=== PATIENT | female | born 1945 | race American Indian/Alaskan Native ===

== ENCOUNTER 2022-03-30 19:01 | Inpatient (IN) | payer MEDICARE ==
--- NOTE | 2022-03-30 19:23 | Emergency Department Report ---
HPI - General Chief Complaint: Neuro Symptoms/Deficit Time Seen by Provider: 03/30/22 19:15 - HPI HPI: Time last known well was March 29, 2022 at 9 PM. Apparently since this morning the caretakers thought that there is something wrong with her because her m entation is not the same and she seems confused and having trouble speaking with trouble getting her words out and also some slurring of the words. The patient is usually able to walk and today has not been able to. It is difficult to communicate with the patient but she denies any current complaints and does not know why she is in the emergency department. She does deny nausea vomiting fever chills headache or any other associated symptoms. ED Past Medical Hx - Past Medical History Hx Hypertension: Yes Hx Diabetes: Yes Hx Dementia: Yes (vascular dementia) Additional medical history: Gout, high cholesterol - Surgical History Past Surgical History?: Yes Additional Surgical History: hysterectomy - Family History Family history: no significant - Social History Smoking Status: Never Smoker Substance Use Type: None - Medications Home Medications: Home Medications Medication Instructions Recorded Confirmed Last Taken Type Aspirin [Aspirin BABY CHEW TAB] 81 mg DAILY 11/29/20 11/29/20 11/28/20 History Metformin HCl [metFORMIN ER 500 mg PO BID 11/29/20 11/29/20 11/28/20 History Osmotic] lisinopriL [Zestril TAB] 20 mg PO QDAY 11/29/20 11/29/20 11/28/20 History ALBUTEROL NEB's [Proventil 0.083% 2.5 mg IH Q3HRT PRN nebu 12/02/20 Unknown Rx NEBS] Amlodipine Besylate [Norvasc] 10 mg PO DAILY #30 tab 12/02/20 Unknown Rx AtorvaSTATin 10 mg PO QHS #30 tab 12/02/20 11/29/20 11/28/20 Rx Insulin Glargine [Lantus VIAL] 30 units SUB-Q QHS #15 ml 12/02/20 Unknown Rx Lispro Insulin [HumaLOG] 12 unit SUB-Q AC #15 ml 12/02/20 Unknown Rx Syringe & Needle,Insulin,1 ml 1 each ACHS #100 disp.syrin 12/02/20 Unknown Rx [Ultra Comfort] allopurinoL [Zyloprim] 300 mg PO QDAY #30 tab 12/02/20 11/29/2011/28/21 Rx Insulin Glargine [Lantus VIAL] 30 units SUB-Q QHS #15 ml 12/06/20 Unknown Rx Lispro Insulin [HumaLOG] 12 unit SQ AC #15 ml 12/06/20 Unknown Rx Syringe & Needle,Insulin,1 ml 1 each ACHS #100 disp.syrin 12/06/20 Unknown Rx [Ultra Comfort] ED Review of Systems ROS: Stated complaint: POSS STOKE Other details as noted in HPI Other: All systems reviewed and negative Physical Exam - Physical Exam Vital Signs: Vital Signs 03/30/22 19:03 Temperature 97 F L Pulse Rate 97 H Respiratory 18 Rate Blood Pressure 186/89 [Left] O2 Sat by Pulse 96 Oximetry Physical Exam: Physical Exam: Constitutional: AAOX3. No acute distress. No diaphoresis. HENT: Normocephalic. Pupils equal and reactive. No throat edema or erythema. Neck: No neck rigidity or tenderness. Cardiovascular: Heart sounds: No murmur. Normal rate and regular rhythm. Pulses: Intact distal pulses. Lungs: No wheezing or rales. Chest wall: No tenderness. Abdominal: No distension. No mass/pulsatile mass. No abdominal tenderness, guarding nor rebound. Musculoskeletal: Normal range of motion. No edema, No calf TTP. Skin: Warm and dry. Neurological: Alert and oriented to person, place, and time. NIH stroke scale equals 5 for mild right facial paralysis with a flat nasolabial fold, ataxia in bilateral upper extremities, mild to moderate aphasia, mild dysarthria. Psychiatric: Mood and affect normal. Normal cognition and memory. Normal judgement. ED Course Vital Signs 03/30/22 19:03 Temperature 97 F L Pulse Rate 97 H Respiratory 18 Rate Blood Pressure 186/89 [Left] O2 Sat by Pulse 96 Oximetry - Reevaluation(s) Reevaluation #1: 03/30/22 19:24 At 1920 I spoke to Cierra Kirkland, the telemetry neurologist who will be evaluated the patient once her CAT scan of the brain comes back. Reevaluation #2: 03/30/22 20:25 I spoke to the telemetry neurologist who did not think that this was necessarily a stroke. Anyway she is currently out of the tPA window. She diagnosed her with altered mental status. At this time her chest x-ray is normal her chemistries are all within normal limits I am awaiting on a urinalysis that we can a catheter for and then she will be admitted for altered mental status. 03/30/22 20:26 Reevaluation #3: 03/30/22 20:55 We are awaiting a urine since her white count is elevated. I spoke to Dr. Wang who will be placing admission orders. Likely this could be metabolic but a she could have had a small stroke. ED Medical Decision Making - Lab Data Result diagrams: 03/30/22 19:41 03/30/22 19:41 Critical care attestation.: If time is entered above; I have spent that time in minutes in the direct care of this critically ill patient, excluding procedure time. ED Disposition Clinical Impression: Altered mental status Disposition: 02 [facility] Is pt being admited?: Yes Does the pt Need Aspirin: Yes Condition: Stable
--- NOTE | 2022-03-30 19:55 | Cat Scan Report ---
CT head/brain wo con INDICATION: acute stroke. TECHNIQUE: Routine CT head. All CT scans at this location are performed using CT dose reduction for A FABIEN by means of automated exposure control. COMPARISON: November 29 2020 FINDINGS: Intracranial: Gatica-white matter differentiation is maintained. No intracranial hemorrhage. No extra a xial collection. No hydrocephalus. No herniation. In the left cerebellar lacunar remote basal ganglia , right thalamic, and left cerebellar lacunar infarctions. Significant periventricular and centrum se [place] white matter hypoattenuation most consistent with sequela of chronic microvascular disease. E ncephalomalacia in the right frontal lobe and right insular lobe from prior infarctions. Sinuses: Significant mucosal thickening seen within the left maxillary sinus with suspected underlyin g mucous retention cysts. Orbits: Globes are intact. Calvarium: No acute fracture. IMPRESSION: 1. No acute intracranial abnormality. 2. Severe sequela from chronic microvascular disease and remote multifocal infarctions. Signer Name: Naeem Reyes MD Signed: 03/30/2022 7:50 PM Workstation Name: [id number]
[2022-03-30 20:01] LABS: Basophils # (Auto) 0.1 K/mm3 (0.0-0.1); Basophils % (Auto) 0.7 % (0.0-1.8); Eosinophils # (Auto) 0.3 K/mm3 (0.0-0.4); Eosinophils % (Auto) 2.4 % (0.0-4.3); Hematocrit 43.3 % (30.3-42.9); Hemoglobin 13.7 gm/dl (10.1-14.3); Lymphocytes # (Auto) 2.7 K/mm3 (1.2-5.4); Lymphocytes % (Auto) 21.5 % (13.4-35.0); Mean Corpuscular HGB Conc 32 % (30-34); Mean Corpuscular Volume 83 fl (79-97); Monocytes # (Auto) 0.9 K/mm3 (0.0-0.8); Monocytes % (Auto) 7.1 % (0.0-7.3); Platelet Count 258 K/mm3 (140-440); Red Blood Count 5.24 M/mm3 (3.65-5.03); Red Cell Distribution Width 14.1 % (13.2-15.2)
--- NOTE | 2022-03-30 20:07 | Emergency Department Report ---
Blank Doc - Documentation Documentation: [facility] Consult Note # Demographics Consult Type: Acute Stroke Level 2 (4.5-24 hrs) Patient Location: Emergency Room First Name: Payam Last Name: Funmilayo Date of : 1945 Age: 76 Gender: Female Facility: [facility] Time of Initial Page ( Time): 03/30/2022, 19:12 Time of Return Call ( Time): 03/30/2022, 19:12 # HPI History: 2100 last night was last well. Some slurred speech and difficulty ambulating # Scores Time of exam and NIHSS ( Time): 03/30/2022, 19:40 Level of Consciousness 1a: [0] = Alert; keenly responsive LOC Questions 1b: [2] = Answers neither correctly LOC Commands 1c: [0] = Performs both tasks correctly Best Gaze 2: [0] = Normal Visual 3: [0] = No visual loss Facial Palsy 4: [1] = Minor paralysis Motor Arm Left 5a: [0] = No drift Motor Arm Right 5b: [0] = No drift Motor Leg Left 6a: [0] = No drift Motor Leg Right 6b: [0] = No drift Limb Ataxia 7: [0] = Absent Sensory 8: [0] = Normal Best Language 9: [0] = No aphasia Dysarthria 10: [1] = [id number] dysarthria Extinction and Inattention 11: [0] = No abnormality NIHSS Total: 4 # Assessment Impression: Altered Mental Status # Plan Thrombolytic/Intervention: NOT IV Thrombolysis or IA Intervention candidate Thrombolytic Exclusion: > 4.5 hours Intraarterial Exclusion: clinically not consistent with stroke Other: I have discussed my recommendations with the referring provider Additional Recommendations: Metabolic and infectious evaluation recommended. If no cause found then MRI brain and EEG would be reasonable for next step in evaluation # Log[employer] Telemedicine: Interactive 2 way audio and visual telecommunication technology was utilized during this visit
[2022-03-30 20:10] LABS: INR 0.96 (0.87-1.13)
[2022-03-30 20:11] LABS: Partial Thromboplastin Time 31.5 Sec. (24.2-36.6); Thrombin Time 21.1 Sec. (15.1-19.6)
--- NOTE | 2022-03-30 20:12 | XRay Report ---
CHEST 1 VIEW 03/30/2022 7:51 PM INDICATION / CLINICAL INFORMATION: stroke. COMPARISON: 11/29/2020 FINDINGS: SUPPORT DEVICES: None. HEART / MEDIASTINUM: No significant abnormality. LUNGS / PLEURA: No significant pulmonary or pleural abnormality. No pneumothorax. ADDITIONAL FINDINGS: No significant additional findings. IMPRESSION: 1. No acute findings. Signer Name: Jagdeep Fuentes MD Signed: 03/30/2022 8:08 PM Workstation Name: [id number]
[2022-03-30 20:22] LABS: Albumin 3.9 g/dL (3.9-5); Calcium 9.1 mg/dL (8.4-10.2)
[2022-03-30] MEDS ORDERED: SODIUM CHLORIDE 0.9% 1000 ML 1,000 ML IV ONE ×2 (20:26→22:08)
[2022-03-30] MEDS ORDERED: LIDOCAINE-MPF (1%) 10 MG/1 ML VIAL 5 ML INFILTRATI ONE (20:30)
[2022-03-30] MEDS ORDERED: HYDROmorphone 0.5 MG/0.5 ML INJ IV PRN (20:55)
[2022-03-30] MEDS ORDERED: ONDANSETRON 4 MG/2 ML INJ IV PRN (20:55)
[2022-03-30] MEDS ORDERED: ACETAMINOPHEN 325 MG TAB PO PRN (20:55)
[2022-03-30] MEDS ORDERED: oxyCODONE /ACETAMINOPHEN 5-325MG TAB PO PRN (20:55)
[2022-03-30] MEDS ORDERED: ALBUTEROL 2.5 MG/3 ML NEBU IH PRN (20:55)
--- NOTE | 2022-03-30 20:55 | History and Physical Report ---
History of Present Illness Chief complaint: She is confused and weak today History of present illness: 76 YO Female with CVA with RHP on Antiplatelet therapy, HTN, HLD, Gout, Vascular Dementia, Cerebral Atherosclerosis, DM presents ED for evaluation. Patient has diminished cognition and is unable to provide detailed history. Patient history provided by patient caregivers who are at bedside during exam and interview. As per caregiver the patient was found to have increased weakness and confusion today. Caregivers reported that they suspected the patient may have had another stroke. Patient transported to [facility] via private vehicle for the care and evaluation of the aforementioned symptoms. The patient was seen and evaluated in the emergency department. All lab and imaging studies reviewed. Patient found to have urinary tract infection complicated by systemic inflammatory response syndrome, metabolic encephalopathy, as well as volume depletion. Patient initiated on CVA protocol without evidence of new CVA. Teleneurology consulted. No reports of fever, chills, chest pain, palpitation, productive c ough, skin rash, recent contact, known exposure to COVID-19. No prior admission for review. All medication listed at time of admission as reconciled. Advanced care planning conducted in ED. Patient has diminished cognition but has a positive gag reflex and is able to protect her airway without difficulty at the time my evaluation. Past History Past Medical History: diabetes, hypertension, hyperlipidemia, stroke Past Surgical History: hysterectomy Social history: . denies: smoking, alcohol abuse, prescription drug abuse Family history: diabetes, hypertension Medications and Allergies Allergies Allergy/AdvReac Type Severity Reaction Status Date / Time No Known Allergies Allergy Verified 05/11/15 10:51 Home Medications Medication Instructions Recorded Confirmed Last Taken Type Aspirin [Aspirin BABY CHEW TAB] 81 mg DAILY 11/29/20 11/29/20 11/28/20 History Metformin HCl [metFORMIN ER 500 mg PO BID 11/29/20 11/29/20 11/28/20 History Osmotic] lisinopriL [Zestril TAB] 20 mg PO QDAY 11/29/20 11/29/20 11/28/20 History ALBUTEROL NEB's [Proventil 0.083% 2.5 mg IH Q3HRT PRN nebu 12/02/20 Unknown Rx NEBS] Amlodipine Besylate [Norvasc] 10 mg PO DAILY #30 tab 12/02/20 Unknown Rx AtorvaSTATin 10 mg PO QHS #30 tab 0111/29/20 11/28/20 Rx Insulin Glargine [Lantus VIAL] 30 units SUB-Q QHS #15 ml 12/02/20 Unknown Rx Lispro Insulin [HumaLOG] 12 unit SUB-Q AC #15 ml 12/02/20 Unknown Rx Syringe & Needle,Insulin,1 ml 1 each [facility] #100 disp.syrin 12/02/20 Unknown Rx [Ultra Comfort] allopurinoL [Zyloprim] 300 mg PO QDAY #30 tab 12/02/20 11/29/20 11/28/20 Rx Insulin Glargine [Lantus VIAL] 30 units SUB-Q QHS #15 ml 12/06/20 Unknown Rx Lispro Insulin [HumaLOG] 12 unit SQ AC #15 ml 12/06/20 Unknown Rx Syringe & Needle,Insulin,1 ml 1 each ACHS #100 disp.syrin 12/06/20 Unknown Rx [Ultra Comfort] Active Meds: Active Medications Sodium Chloride (Nacl 0.9% 1000 Ml) 1,000 mls @ 999 mls/hr IV BOLUS ONE Stop: 03/30/22 21:26 Ceftriaxone Sodium (Rocephin/Ns 1 Gm/50 Ml) 1 gm in 50 mls @ 100 mls/hr IV ONCE ONE Stop: 03/30/22 21:29 Review of Systems ROS unobtainable: due to mental status Exam - Constitutional Vitals: Temp Pulse Resp BP Pulse Ox 97 F L 97 H 18 186/89 96 03/30/22 19:03 03/30/22 19:03 03/30/22 19:03 03/30/22 19:03 03/30/22 19:03 General appearance: Present: mild distress - EENT Eyes: Present: PERRL ENT: hearing intact, clear oral mucosa - Neck Neck: Present: supple - Respiratory Respiratory effort: normal Respiratory: bilateral: diminished - Cardiovascular Heart Sounds: Present: S1 & S2. Absent: rub, click - Extremities Extremities: pulses symmetrical, No edema Peripheral Pulses: within normal limits - Abdominal General gastrointestinal: Present: soft, non-tender, non-distended, normal bowel sounds Female genitourinary: Present: normal - Integumentary Integumentary: Present: clear, dry, clammy - Musculoskeletal Musculoskeletal: right sided weakness - Psychiatric Psychiatric: no appropriate mood/affect, no intact judgment & insight, no memory intact - Neurologic Neurologic: CNII-XII intact, focal deficits, no gait normal HEART Score - HEART Score Troponin: Troponin T < 0.010 ng/mL (0.00-0.029) 03/30/22 19:41 Results - Labs CBC & Chem 7: 03/30/22 19:41 03/30/22 19:41 Labs: Abnormal lab results 03/30/22 03/30/22 03/30/22 Range/Units 19:41 19:41 19:41 WBC 12.7 H (4.5-11.0) K/mm3 RBC 5.24 H (3.65-5.03) M/mm3 Hct 43.3 H (30.3-42.9) % MCH 26 L (28-32) pg [place] # (Auto) 0.9 H (0.0-0.8) K/mm3 Seg Neutrophils # 8.7 H (1.8-7.7) K/mm3 Thrombin Time 21.1 H (15.1-19.6) Sec. Chloride 110.2 H (98-107) mmol/L BUN 32 H (7-17) mg/dL Glucose 134 H (65-100) mg/dL Assessment and Plan - Patient Problems (1) Systemic inflammatory response syndrome Status: Acute Plan to address problem: CBC, CMP, urinalysis, chest x-ray, IV fluid resuscitation therapy, IV antibiotic therapy, supportive care. (2) UTI (urinary tract infection) Status: Acute Qualifiers: Encounter type: initial encounter Plan to address problem: CBC, urinalysis, IV antibiotic therapy, repeat CBC in a.m. (3) Metabolic encephalopathy Status: Acute Plan to address problem: CT head, neuro check, seizure precaution, aspiration precaution, fall precautions (4) Vascular dementia Status: Acute Qualifiers: Dementia behavioral disturbance: without behavioral disturbance Qualified Code(s): F01.50 - Vascular dementia without behavioral disturbance Plan to address problem: Verbal prompting, verbal redirection, benzodiazepine therapy as clinically indicated. (5) Cerebral atherosclerosis Status: Acute Plan to address problem: Risk factor reduction, antiplatelet therapy, supportive care. (6) Volume depletion Status: Acute Plan to address problem: IV fluid resuscitation therapy, monitor urine output every shift, monitor fluid balance. (7) DVT prophylaxis Status: Acute Plan to address problem: SCD to bilateral lower extremities while in bed (8) Advance care planning Status: Acute Plan to address problem: Disease education done, care plan discussed, diagnoses discussed, prognosis discussed, patient is full code. Patient caregivers acknowledged understanding and agreement with care plan, +30 minutes. (9) Preventative health care Status: Acute Plan to address problem: Patient caregiver was counseled regarding risk factor reduction, home safety, outpatient follow-up with primary care physician for all age and risk factor appropriate screening test.
[2022-03-30] MEDS ORDERED: ASPIRIN 81 MG TAB CHEW PO ONE (20:56)
[2022-03-30] MEDS ORDERED: DEXTROSE 50% IN WATER (25GM) 50 ML SYRINGE IV PRN (20:58)
[2022-03-30] MEDS ORDERED: cefTRIAXone/NS 1 GM/50 ML 1 GM/50 ML BAG IV ONE (21:00)
[2022-03-31] MEDS: INSULIN LISPRO 100 UNIT/ML SUB-Q SCH ×4 (02:17→17:14)
[2022-03-31 05:53] LABS: Basophils % (Auto) 0.5 % (0.0-1.8); Eosinophils # (Auto) 0.3 K/mm3 (0.0-0.4); Eosinophils % (Auto) 2.9 % (0.0-4.3); Hemoglobin 13.1 gm/dl (10.1-14.3); Lymphocytes % (Auto) 18.9 % (13.4-35.0); Mean Corpuscular HGB Conc 32 % (30-34); Mean Corpuscular Volume 83 fl (79-97); Monocytes # (Auto) 0.8 K/mm3 (0.0-0.8); Monocytes % (Auto) 7.2 % (0.0-7.3); Platelet Count 247 K/mm3 (140-440); Red Blood Count 4.95 M/mm3 (3.65-5.03); Red Cell Distribution Width 14.2 % (13.2-15.2)
[2022-03-31 06:17] LABS: BUN/Creatinine Ratio 29; Blood Urea Nitrogen 29 mg/dL (7-17); Calcium 8.5 mg/dL (8.4-10.2); Hemolysis Index 61
[2022-03-31] MEDS: SODIUM CHLORIDE 0.9% 1000 ML 1,000 ML IV SCH ×2 (07:31→23:24)
[2022-03-31 09:34] LABS: Bilirubin,Urine NEG (Negative); Blood,Urine NEG (Negative); Color,Urine Straw (Yellow); Protein,Urine <15 mg/dL mg/dL (Negative); Urobilinogen,Urine < 2.0 mg/dL (<2.0)
[2022-03-31 09:36] LABS: RBC,Urine < 1.0 /HPF (0.0-6.0); WBC,Urine < 1.0 /HPF (0.0-6.0)
[2022-03-31] MEDS: LISINOPRIL 20 MG TAB PO SCH (09:55)
[2022-03-31] MEDS: allopurinoL 300 MG TAB PO SCH (09:55)
[2022-03-31] MEDS: amLODIPine 10 MG TAB PO SCH (09:55)
--- NOTE | 2022-03-31 11:00 | Progress Note ---
Assessment and Plan Assessment and plan: 76 YO Female with CVA with RHP on Antiplatelet therapy, HTN, HLD, Gout, Vascular Dementia, Cerebral Atherosclerosis, DM presents ED for evaluation of diminished cognition and was unable to provide detailed history. Patient's history provided by patient caregivers who are at bedside during exam and interview. As per caregiver the patient was found to have increased weakness and confusion today. Caregivers reported that they suspected the patient may have had another stroke. Patient transported to [facility] via private vehicle for the care and evaluation of the aforementioned symptoms. The patient was seen and evaluated in the emergency department. The patient was admitted with diagnosis below: SIRS. Patient meets criteria given the tachycardia, leukocytosis and altered mentation. No signs of infection Metabolic encephalopathy Vascular dementia Cerebral atherosclerosis 03/31/2022. Urinalysis does not reveal any signs of infection. We will follow- up blood cultures for further evaluation. Continue empiric antibiotics for now. We will proceed with further follow-up and rule out CVA. Check MRI of brain. Patient appears to be back to her baseline mental status. ? TIA. History Interval history: No new issues overnight. Hospitalist Physical - Constitutional Vitals: Temp Pulse Resp BP Pulse Ox 97 F L 79 20 164/63 98 03/30/22 19:03 03/31/22 01:15 03/31/22 01:15 03/31/22 01:15 03/31/22 08:48 General appearance: Present: no acute distress - EENT Eyes: Present: PERRL, EOM intact ENT: hearing intact, clear oral mucosa, dentition normal - Neck Neck: Present: supple, normal ROM - Respiratory Respiratory effort: normal Respiratory: bilateral: CTA - Cardiovascular Rhythm: regular Heart Sounds: Present: S1 & S2. Absent: gallop, rub - Extremities Extremities: no ischemia, No edema, Full ROM - Abdominal General gastrointestinal: soft, non-tender, non-distended, normal bowel sounds - Integumentary Integumentary: Present: clear, warm, dry - Neurologic Neurologic: CNII-XII intact, moves all extremities HEART Score - HEART Score Troponin: Troponin T < 0.010 ng/mL (0.00-0.029) 03/30/22 19:41 Results - Labs CBC & Chem 7: 03/31/22 05:23 03/31/22 05:23 Labs: Laboratory Last Values WBC 10.4 K/mm3 (4.5-11.0) 03/31/22 05:23 RBC 4.95 M/mm3 (3.65-5.03) 03/31/22 05:23 Hgb 13.1 gm/dl (10.1-14.3) 03/31/22 05:23 Hct 41.0 % (30.3-42.9) 03/31/22 05:23 MCV 83 fl (79-97) 03/31/22 05:23 MCH 27 pg (28-32) L 03/31/22 05:23 MCHC 32 % (30-34) 03/31/22 05:23 RDW 14.2 % (13.2-15.2) 03/31/22 05:23 Plt Count 247 K/mm3 (140-440) 03/31/22 05:23 Lymph % (Auto) 18.9 % (13.4-35.0) 03/31/22 05:23 [place] % (Auto) 7.2 % (0.0-7.3) 03/31/22 05:23 Eos % (Auto) 2.9 % (0.0-4.3) 03/31/22 05:23 Baso % (Auto) 0.5 % (0.0-1.8) 03/31/22 05:23 Lymph # (Auto) 2.0 K/mm3 (1.2-5.4) 03/31/22 05:23 [place] # (Auto) 0.8 K/mm3 (0.0-0.8) 03/31/22 05:23 Eos # (Auto) 0.3 K/mm3 (0.0-0.4) 03/31/22 05:23 Baso # (Auto) 0.0 K/mm3 (0.0-0.1) 03/31/22 05:23 Seg Neutrophils % 70.5 % (40.0-70.0) H 03/31/22 05:23 Seg Neutrophils # 7.3 K/mm3 (1.8-7.7) 03/31/22 05:23 PT 13.8 Sec. (12.2-14.9) 03/30/22 19:41 INR 0.96 (0.87-1.13) 03/30/22 19:41 APTT 31.5 Sec. (24.2-36.6) 03/30/22 19:41 Thrombin Time 21.1 Sec. (15.1-19.6) H 03/30/22 19:41 Sodium 144 mmol/L (137-145) 03/31/22 05:23 Potassium 4.7 mmol/L (3.6-5.0) 03/31/22 05:23 Chloride 112.8 mmol/L (98-107) H 03/31/22 05:23 Carbon Dioxide 22 mmol/L (22-30) 03/31/22 05:23 Anion Gap 14 mmol/L 03/31/22 05:23 BUN 29 mg/dL (7-17) H 03/31/22 05:23 Creatinine 1.0 mg/dL (0.6-1.2) 03/31/22 05:23 Estimated GFR > 60 ml/min 03/31/22 05:23 BUN/Creatinine Ratio 29 % 03/31/22 05:23 Glucose 135 mg/dL (65-100) H 03/31/22 05:23 POC Glucose 128 mg/dL (70-105) H 03/31/22 05:50 Calcium 8.5 mg/dL (8.4-10.2) 03/31/22 05:23 Total Bilirubin 0.30 mg/dL (0.1-1.2) 03/30/22 19:41 AST 15 units/L (5-40) 03/30/22 19:41 ALT 15 units/L (7-56) 03/30/22 19:41 Alkaline Phosphatase 94 units/L (35-129) 03/30/22 19:41 Troponin T < 0.010 ng/mL (0.00-0.029) 03/30/22 19:41 Total Protein 7.0 g/dL (6.3-8.2) 03/30/22 19:41 Albumin 3.9 g/dL (3.9-5) 03/30/22 19:41 Albumin/Globulin Ratio 1.3 % 03/30/22 19:41 Urine Color Straw (Yellow) 03/31/22 09:00 Urine Turbidity Clear (Clear) 03/31/22 09:00 Urine pH 5.0 (5.0-7.0) 03/31/22 09:00 Ur Specific [place] 1.012 (1.003-1.030) 03/31/22 09:00 Urine Protein <15 mg/dl mg/dL (Negative) 03/31/22 09:00 Urine Glucose (UA) >=500 mg/dL (Negative) 03/31/22 09:00 Urine Ketones Neg mg/dL (Negative) 03/31/22 09:00 Urine Blood Neg (Negative) 03/31/22 09:00 Urine Nitrite Neg (Negative) 03/31/22 09:00 Urine Bilirubin Neg (Negative) 03/31/22 09:00 Urine Urobilinogen < 2.0 mg/dL (<2.0) 03/31/22 09:00 Ur Leukocyte Esterase Neg (Negative) 03/31/22 09:00 Urine WBC (Auto) < 1.0 /HPF (0.0-6.0) 03/31/22 09:00 Urine RBC (Auto) < 1.0 /HPF (0.0-6.0) 03/31/22 09:00 U Epithel Cells (Auto) 3.0 /HPF (0-13.0) 03/31/22 09:00 Microbiology: Microbiology 03/30/22 20:47 Peripheral/Venous Blood Culture - Preliminary Culture in Progress 03/30/22 20:47 Peripheral/Venous Blood Culture - Preliminary Culture in Progress Asencio/IV: Voiding Method External Female Catheter Active Medications - Current Medications Current Medications: Generic Name Dose Route Start Last Admin Trade Name Freq PRN Reason Stop Dose Admin Acetaminophen 650 mg 03/30/22 20:55 03/30/22 21:37 Acetaminophen 325 Mg Tab PO 650 mg Q4H PRN Administration Pain MILD(1-3)/Fever >100.5/GARCIA Albuterol 2.5 mg 03/30/22 20:55 Albuterol 2.5 Mg/3 Ml Nebu IH Q4HRT PRN Shortness Of Breath Allopurinol 300 mg 03/31/22 10:00 03/31/22 09:55 Allopurinol 300 Mg Tab PO 300 mg QDAY ANGELA Administration Amlodipine Besylate 10 mg 03/31/22 10:00 03/31/22 09:55 Amlodipine 10 Mg Tab PO 10 mg DAILY ANGELA Administration Atorvastatin Calcium 10 mg 03/30/22 22:00 03/31/22 02:49 Atorvastatin 10 Mg Tab PO Not Given QHS ANGELA Dextrose 50 ml 03/30/22 20:58 Dextrose 50% In Water (25gm) 50 Ml Syringe IV Q30MIN PRN Hypoglycemia Protocol Hydromorphone HCl 0.5 mg 03/30/22 20:55 Hydromorphone 0.5 Mg/0.5 Ml Inj IV Q23H PRN Pain , Severe (7-10) Sodium Chloride 1,000 mls @ 75 mls/hr 03/30/22 21:00 03/31/22 07:31 Nacl 0.9% 1000 Ml IV 75 mls/hr DIRECT ANGELA Administration Levofloxacin/Dextrose 500 mg in 100 mls @ 100 mls/hr 03/30/22 21:00 03/31/22 02:50 Levaquin 500mg/100ml IV 100 mls/hr Q24H ANGELA Infusion Protocol Insulin Human Lispro 0 unit 03/31/22 00:00 03/31/22 08:07 Insulin Lispro 100 Unit/Ml SUB-Q Not Given Q6HR ANGELA Protocol Lisinopril 20 mg 03/31/22 10:00 03/31/22 09:55 Lisinopril 20 Mg Tab PO 20 mg QDAY ANGELA Administration Ondansetron HCl 4 mg 03/30/22 20:55 03/30/22 21:35 Ondansetron 4 Mg/2 Ml Inj IV 4 mg Q8H PRN Administration Nausea And Vomiting Oxycodone/Acetaminophen 1 tab 03/30/22 20:55 Oxycodone /Acetaminophen 5-325mg Tab PO Q16H PRN Pain, Moderate (4-6) Sodium Chloride 10 ml 03/30/22 22:00 03/31/22 09:55 Sodium Chloride 0.9% 10 Ml Flush Syringe IV 10 ml BID ANGELA Administration Sodium Chloride 10 ml 03/30/22 20:55 Sodium Chloride 0.9% 10 Ml Flush Syringe IV PRN PRN LINE FLUSH
--- NOTE | 2022-03-31 15:02 | Magnetic Resonance Report ---
MR brain wo con INDICATION / CLINICAL INFORMATION: 76 years Female; AMS, r/o CVA. TECHNIQUE: Multiplanar, multisequence MR images of the brain were obtained. COMPARISON: None available. FINDINGS: BRAIN / INTRACRANIAL CONTENTS: There is extensive cerebral and pontine white matter disease most cons istent with microvascular angiopathy. Additionally, there are areas of septal malacia involving right frontal, parietal and occipital lobes most consistent with old infarcts. More focal findings are see n along the posterior left occipital lobes as well as within the basal ganglia and thalami. If there is increase diffusion signal along the more anterior left thalamus measuring 1.4 cm greatest transverse dimension compatible with acute/subacute infarct. The diffusion imaging is otherwise unre markable. Old infarct is seen within the left phani as well as along the posterior cerebellar hemisphe res bilaterally. There is moderate cerebral atrophy with associated prominence of the ventricular system. No extra-axi al fluid collections or significant mass effect is identified. There also appear to be asymmetric chr onic ischemic changes along the inferior right temporal lobe with relative atrophy of the right [place]. CRANIOCERVICAL JUNCTION: No significant abnormality. VASCULAR FLOW-VOIDS: The intracranial ICAs and vertebrobasilar system grossly demonstrate appropriate signal voids. ORBITS: No significant abnormality of visualized orbits. SINUSES / MASTOIDS: There is heterogeneous signal involving medial left maxillary sinus extending to the adjacent left nasal cavity which may be on inflammatory basis though correlation would be needed given the heterogeneous signal. There is more homogeneous increased T2-weighted signal within the rem aining left maxillary sinus most consistent with associated inflammatory process and mucosal thickeni ng. Nodular heterogeneous signal extends within the posterior left nasal cavity. ADDITIONAL FINDINGS: None. IMPRESSION: 1. There is a 1.4 cm acute infarct along the anterior left thalamus as detailed above. 2. There is otherwise extensive chronic microvascular angiopathy and multiple old infarcts, also desc ribed above. 3. There is heterogeneous opacification of the left maxillary sinus with component extending within t he adjacent left nasal cavity as described Signer Name: Tito Spence MD Signed: 03/31/2022 2:58 PM Workstation Name: [id number]
[2022-04-01] MEDS: INSULIN LISPRO 100 UNIT/ML SUB-Q SCH ×4 (00:23→18:00)
[2022-04-01] MEDS: ASPIRIN EC 325 MG TAB PO SCH (10:03)
[2022-04-01] MEDS: amLODIPine 10 MG TAB PO SCH (10:03)
[2022-04-01] MEDS: LISINOPRIL 20 MG TAB PO SCH (10:04)
[2022-04-01] MEDS: allopurinoL 300 MG TAB PO SCH (10:08)
--- NOTE | 2022-04-01 10:26 | Consultation ---
History of Present Illness Consult date: 04/01/22 Reason for Consult: Increase weakness and confusion,Hx of CVA,dementia,UTI History of present illness: She is confused and weak today History of present illness: 76 YO Female with CVA with RHP on Antiplatelet therapy, HTN, HLD, Gout, Vascular Dementia, Cerebral Atherosclerosis, DM presents ED for evaluation. Patient has diminished cognition and is unable to provide detailed history. Patient history provided by patient caregivers who are at bedside during exam and interview. As per caregiver the patient was found to have increased weakness and confusion today. Caregivers reported that they suspected the patient may have had another stroke. Patient transported to [facility] via private vehicle for the care and ev aluation of the aforementioned symptoms. The patient was seen and evaluated in the emergency department. All lab and imaging studies reviewed. Patient found to have urinary tract infection complicated by systemic inflammatory response syndrome, metabolic encephalopathy, as well as volume depletion. Patient initiated on CVA protocol without evidence of new CVA. Teleneurology consulted. No reports of fever, chills, chest pain, palpitation, productive cough, skin rash, recent contact, known exposure to COVID-19. No prior admission for review. All medication listed at time of admission as reconciled. Advanced care planning conducted in ED. Patient has diminished cognition but has a pos itive gag reflex and is able to protect her airway without difficulty at the time my evaluation. Today she is alert interactive,follow simple command she is hard hearing , she is with no complaint ,disoriented to date and place, thinks she is [address] brain is with significant white matter changes and subcortical and right parieto-occipital infarct . Past History Past Medical History: diabetes, hypertension, hyperlipidemia, stroke Past Surgical History: hysterectomy Social history: . denies: smoking, alcohol abuse, prescription drug abuse Family history: diabetes, hypertension Medications and Allergies Allergies Allergy/AdvReac Type Severity Reaction Status Date / Time No Known Allergies Allergy Verified 05/11/15 10:51 Home Medications Medication Instructions Recorded Confirmed Last Taken Type Aspirin [Aspirin BABY CHEW TAB] 81 mg DAILY 11/29/20 11/29/20 11/28/20 History Metformin HCl [metFORMIN ER 500 mg PO BID 11/29/20 11/29/20 11/28/20 History Osmotic] lisinopriL [Zestril TAB] 20 mg PO QDAY 11/29/20 11/29/2011/28/21 History ALBUTEROL NEB's [Proventil 0.083% 2.5 mg IH Q3HRT PRN nebu 12/02/20 Unknown Rx NEBS] Amlodipine Besylate [Norvasc] 10 mg PO DAILY #30 tab 12/02/20 Unknown Rx AtorvaSTATin 10 mg PO QHS #30 tab 12/02/20 11/29/20 11/28/20 Rx Insulin Glargine [Lantus VIAL] 30 units SUB-Q QHS #15 ml 12/02/20 Unknown Rx Lispro Insulin [HumaLOG] 12 unit SUB-Q AC #15 ml 12/02/20 Unknown Rx Syringe & Needle,Insulin,1 ml 1 each [facility] #100 disp.syrin 12/02/20 Unknown Rx [Ultra Comfort] allopurinoL [Zyloprim] 300 mg PO QDAY #30 tab 12/02/20 11/29/20 11/28/20 Rx Insulin Glargine [Lantus VIAL] 30 units SUB-Q QHS #15 ml 12/06/20 Unknown Rx Lispro Insulin [HumaLOG] 12 unit SQ AC #15 ml 12/06/20 Unknown Rx Syringe & Needle,Insulin,1 ml 1 each [facility] #100 disp.syrin 12/06/20 Unknown Rx [Ultra Comfort] Active Meds: Active Medications Sodium Chloride (Nacl 0.9% 1000 Ml) 1,000 mls @ 999 mls/hr IV BOLUS ONE Stop: 03/30/22 21:26 Ceftriaxone Sodium (Rocephin/Ns 1 Gm/50 Ml) 1 gm in 50 mls @ 100 mls/hr IV ONCE ONE Stop: 03/30/22 21:29 Review of Systems ROS unobtainable: due to mental status Past History Past Medical History: diabetes, hypertension, hyperlipidemia, stroke Past Surgical History: hysterectomy Social history: . denies: smoking, alcohol abuse, prescription drug abuse Family history: diabetes, hypertension Medications and Allergies Allergies Allergy/AdvReac Type Severity Reaction Status Date / Time No Known Allergies Allergy Verified 05/11/15 10:51 Home Medications Medication Instructions Recorded Confirmed Last Taken Type Aspirin [Aspirin BABY CHEW TAB] 81 mg DAILY 11/29/20 11/29/20 11/28/20 History Metformin HCl [metFORMIN ER 500 mg PO BID 01/11/29/20 11/28/20 History Osmotic] lisinopriL [Zestril TAB] 20 mg PO QDAY 11/29/20 11/29/20 11/28/20 History ALBUTEROL NEB's [Proventil 0.083% 2.5 mg IH Q3HRT PRN nebu 12/02/20 Unknown Rx NEBS] Amlodipine Besylate [Norvasc] 10 mg PO DAILY #30 tab 12/02/20 Unknown Rx AtorvaSTATin 10 mg PO QHS #30 tab 12/02/20 11/29/20 11/28/20 Rx Insulin Glargine [Lantus VIAL] 30 units SUB-Q QHS #15 ml 12/02/20 Unknown Rx Lispro Insulin [HumaLOG] 12 unit SUB-Q AC #15 ml 12/02/20 Unknown Rx Syringe & Needle,Insulin,1 ml 1 each [facility] #100 disp.syrin 12/02/20 Unknown Rx [Ultra Comfort] allopurinoL [Zyloprim] 300 mg PO QDAY #30 tab 12/02/20 11/29/20 11/28/20 Rx Insulin Glargine [Lantus VIAL] 30 units SUB-Q QHS #15 ml 12/06/20 Unknown Rx Lispro Insulin [HumaLOG] 12 unit SQ AC #15 ml 12/06/20 Unknown Rx Syringe & Needle,Insulin,1 ml 1 each [facility] #100 disp.syrin 12/06/20 Unknown Rx [Ultra Comfort] Active Meds: Active Medications Acetaminophen (Acetaminophen 325 Mg Tab) 650 mg PO Q4H PRN PRN Reason: Pain MILD(1-3)/Fever >100.5/GARCIA Last Admin: 03/30/22 21:37 Dose: 650 mg Albuterol (Albuterol 2.5 Mg/3 Ml Nebu) 2.5 mg IH Q4HRT PRN PRN Reason: Shortness Of Breath Allopurinol (Allopurinol 300 Mg Tab) 300 mg PO QDAY [facility] Last Admin: 04/01/22 10:08 Dose: 300 mg Amlodipine Besylate (Amlodipine 10 Mg Tab) 10 mg PO DAILY [facility] Last Admin: 04/01/22 10:03 Dose: 10 mg Aspirin (Aspirin Ec 325 Mg Tab) 325 mg PO QDAY [facility] Last Admin: 04/01/22 10:03 Dose: 325 mg Atorvastatin Calcium (Atorvastatin 40 Mg Tab) 40 mg PO QHS [facility] Dextrose (Dextrose 50% In Water (25gm) 50 Ml Syringe) 50 ml IV Q30MIN PRN; Protocol PRN Reason: Hypoglycemia Hydromorphone HCl (Hydromorphone 0.5 Mg/0.5 Ml Inj) 0.5 mg IV Q23H PRN PRN Reason: Pain , Severe (7-10) Sodium Chloride (Nacl 0.9% 1000 Ml) 1,000 mls @ 75 mls/hr IV DIRECT [facility] Last Admin: 03/31/22 23:24 Dose: 75 mls/hr Levofloxacin/Dextrose (Levaquin 500mg/100ml) 500 mg in 100 mls @ 100 mls/hr IV Q24H [facility]; Protocol Last Admin: 03/31/22 21:52 Dose: 100 mls/hr Insulin Human Lispro (Insulin Lispro 100 Unit/Ml) 0 unit SUB-Q Q6HR [facility]; Protocol Last Admin: 04/01/22 06:03 Dose: 2 unit Lisinopril (Lisinopril 20 Mg Tab) 20 mg PO QDAY [facility] Last Admin: 04/01/22 10:04 Dose: 20 mg Ondansetron HCl (Ondansetron 4 Mg/2 Ml Inj) 4 mg IV Q8H PRN PRN Reason: Nausea And Vomiting Last Admin: 03/30/22 21:35 Dose: 4 mg Oxycodone/Acetaminophen (Oxycodone /Acetaminophen 5-325mg Tab) 1 tab PO Q16H [place] PRN Reason: Pain, Moderate (4-6) Sodium Chloride (Sodium Chloride 0.9% 10 Ml Flush Syringe) 10 ml IV BID [facility] Last Admin: 04/01/22 10:03 Dose: 10 ml Sodium Chloride (Sodium Chloride 0.9% 10 Ml Flush Syringe) 10 ml IV PRN PRN PRN Reason: LINE FLUSH Physical Examination - Vital Signs Vital Signs: Vital Signs Temp Pulse Resp BP Pulse Ox 97 F L 97 H 18 186/89 96 03/30/22 19:03 03/30/22 19:03 03/30/22 19:03 03/30/22 19:03 03/30/22 19:03 - Constitutional General appearance: comfortable - EENT EENT: Present: PERRL, mucous membranes moist - Respiratory Respiratory: Present: lungs clear, rhonchi - Cardiovascular Cardiovascular: Present: regular rate, normal S1, normal S2 Extremities: Present: no peripheral edema bilatateraly, no clubbing, cyanosis - Gastrointestinal Gastrointestinal: Present: normoactive bowel sounds - Integumentary Integumentary: Present: normal - Neurologic Cranial nerve examination: PERRL, EOMI, intact Speech examination: intact Sensorimotor examination: intact Detailed motor examination: other (slight right pronator drift, planter is down going, gait is not done.) - Level of Consciousness 1a. Level of Consciousness: alert/keenly responsive - LOC Questions 1b. LOC Questions: answers no questions correctly - LOC Command 1c. LOC Commands: performs tasks correctly - Best Gaze 2. Best Gaze: normal - Visual 3. Visual: no visual loss - Facial Palsy 4. Facial Palsy: normal symmetrical movement - Motor Arm 5a. Motor Arm Left: no drift 5b. Motor Arm Right: drift - Motor Leg 6a. Motor Leg Left: no drift 6b. Motor Leg Right: no drift - Limb Ataxia 7. Limb Ataxia: absent - Sensory 8. Sensory: normal - Best Language 9. Best Language: no aphasia - Dysarthria 10. Dysarthria: normal - Extinction and Inattention 11. Extinction/Inattention: no abnormality - Scoring Total Score: 3 Stroke Severity: Minor Stroke Results - Laboratory Findings CBC and BMP: 03/31/22 05:23 03/31/22 05:23 Abnormal Lab Findings: Abnormal Labs 03/30/22 03/30/22 03/30/22 19:41 19:41 19:41 WBC 12.7 H RBC 5.24 H Hct 43.3 H MCH 26 L [place] # (Auto) 0.9 H Seg Neutrophils % Seg Neutrophils # 8.7 H Thrombin Time 21.1 H Chloride 110.2 H BUN 32 H Glucose 134 H POC Glucose 03/31/22 03/31/22 03/31/22 01:49 05:23 05:23 WBC RBC Hct MCH 27 L [place] # (Auto) Seg Neutrophils % 70.5 H Seg Neutrophils # Thrombin Time Chloride 112.8 H BUN 29 H Glucose 135 H POC Glucose 113 H 03/31/22 03/31/22 03/31/22 05:50 12:13 23:45 WBC RBC Hct MCH [place] # (Auto) Seg Neutrophils % Seg Neutrophils # Thrombin Time Chloride BUN Glucose POC Glucose 128 H 159 H 154 H 04/01/22 05:54 WBC RBC Hct MCH [place] # (Auto) Seg Neutrophils % Seg Neutrophils # Thrombin Time Chloride BUN Glucose POC Glucose 167 H Assessment and Plan Assessment and Plan 76 YO Female with CVA with RHP on Antiplatelet therapy, HTN, HLD, Gout, Vascular Dementia, Cerebral Atherosclerosis, DM presents ED for evaluation of diminished cognition and was unable to provide detailed history. Patient's history provided by patient caregivers who are at bedside during exam and interview. As per caregiver the patient was found to have increased weakness and confusion today. Caregivers reported that they suspected the patient may have had another stroke. Patient transported to [facility] via private vehicle for the care and evaluation of the aforementioned symptoms. The patient was seen and evaluated in the emergency department. The patient was admitted with diagnosis below: - Patient Problems # Encephalopathy -R/O infectious,Toxic metabolic etiology -Ct head is with multiinfarct -MRI is noted -Check B12 and TSH -US # Vascular dementia -She is hard hearing -Verbal prompting, verbal redirection, benzodiazepine therapy as clinically indicated. # Right side weakness -CT showed multiinfarct _MRI brain left thalamic infarct -Echo is with EF#55-60%LVH -LDL is pending -A1C is pending -Suggest CTA brain and neck -Cardiac monitoring -PT/ST evaluate -ASA 325 mg daily -Lipitor 40 mg # Systemic inflammatory response syndrome -CBC, CMP, urinalysis, chest x-ray, IV fluid resuscitation therapy, IV antib iotic therapy, supportive care. # UTI (urinary tract infection) -CBC, urinalysis, IV antibiotic therapy, repeat CBC in a.m. # Volume depletion -IV fluid resuscitation therapy, monitor urine output every shift, monitor fluid balance. # DVT prophylaxis -SCD to bilateral lower extremities while in bed PLAN 1- Maintain ASA and Lipitor 2- CTA brain and neck 3- LDL and A1C 4- PT/St evaluate 5- TSH,B12 will follow
--- NOTE | 2022-04-01 10:55 | Progress Note ---
Assessment and Plan Assessment and plan: 76 YO Female with CVA with RHP on Antiplatelet therapy, HTN, HLD, Gout, Vascular Dementia, Cerebral Atherosclerosis, DM presents ED for evaluation of diminished cognition and was unable to provide detailed history. Patient's history provided by patient caregivers who are at bedside during exam and interview. As per caregiver the patient was found to have increased weakness and confusion today. Caregivers reported that they suspected the patient may have had another stroke. Patient transported to [facility] via private vehicle for the care and evaluation of the aforementioned symptoms. The patient was seen and evaluated in the emergency department. The patient was admitted with diagnosis below: Acute left thalamic CVA. SIRS. Patient meets criteria given the tachycardia, leukocytosis and altered mentation. No signs of infection Diabetes mellitus type 2 Hypertension. Metabolic encephalopathy Vascular dementia Cerebral atherosclerosis 03/31/2022. Urinalysis does not reveal any signs of infection. We will follow- up blood cultures for further evaluation. Continue empiric antibiotics for now. We will proceed with further follow-up and rule out CVA. Check MRI of brain. Patient appears to be back to her baseline mental status. ? TIA. 04/01/2022. MRI reveals acute anterior left thalamic CVA measuring 1.4 cm. We will initiate aspirin and Lipitor for secondary prevention. Await echocardiogram results to rule out thromboembolic source. Neurology has been consulted. Await physical therapy evaluation. Patient's BG has been stable not requiring home Lantus insulin. We will continue sliding scale regular insulin and monitor closely History Interval history: No new issues overnight. Hospitalist Physical - Constitutional Vitals: Temp Pulse Resp BP Pulse Ox 98.7 F 77 16 156/66 97 03/31/22 20:44 03/31/22 20:44 03/31/22 20:44 03/31/22 20:44 04/01/22 09:12 General appearance: Present: no acute distress - EENT Eyes: Present: PERRL, EOM intact ENT: hearing intact, clear oral mucosa, dentition normal - Neck Neck: Present: supple, normal ROM - Respiratory Respiratory effort: normal Respiratory: bilateral: CTA - Cardiovascular Rhythm: regular Heart Sounds: Present: S1 & S2. Absent: gallop, rub - Extremities Extremities: no ischemia, No edema, Full ROM - Abdominal General gastrointestinal: soft, non-tender, non-distended, normal bowel sounds - Integumentary Integumentary: Present: clear, warm, dry - Neurologic Neurologic: CNII-XII intact, moves all extremities HEART Score - HEART Score Troponin: Troponin T < 0.010 ng/mL (0.00-0.029) 03/30/22 19:41 Results - Labs CBC & Chem 7: 03/31/22 05:23 03/31/22 05:23 Labs: Laboratory Last Values WBC 10.4 K/mm3 (4.5-11.0) 03/31/22 05:23 RBC 4.95 M/mm3 (3.65-5.03) 03/31/22 05:23 Hgb 13.1 gm/dl (10.1-14.3) 03/31/22 05:23 Hct 41.0 % (30.3-42.9) 03/31/22 05:23 MCV 83 fl (79-97) 03/31/22 05:23 MCH 27 pg (28-32) L 03/31/22 05:23 MCHC 32 % (30-34) 03/31/22 05:23 RDW 14.2 % (13.2-15.2) 03/31/22 05:23 Plt Count 247 K/mm3 (140-440) 03/31/22 05:23 Lymph % (Auto) 18.9 % (13.4-35.0) 03/31/22 05:23 [place] % (Auto) 7.2 % (0.0-7.3) 03/31/22 05:23 Eos % (Auto) 2.9 % (0.0-4.3) 03/31/22 05:23 Baso % (Auto) 0.5 % (0.0-1.8) 03/31/22 05:23 Lymph # (Auto) 2.0 K/mm3 (1.2-5.4) 03/31/22 05:23 [place] # (Auto) 0.8 K/mm3 (0.0-0.8) 03/31/22 05:23 Eos # (Auto) 0.3 K/mm3 (0.0-0.4) 03/31/22 05:23 Baso # (Auto) 0.0 K/mm3 (0.0-0.1) 03/31/22 05:23 Seg Neutrophils % 70.5 % (40.0-70.0) H 03/31/22 05:23 Seg Neutrophils # 7.3 K/mm3 (1.8-7.7) 03/31/22 05:23 PT 13.8 Sec. (12.2-14.9) 03/30/22 19:41 INR 0.96 (0.87-1.13) 03/30/22 19:41 APTT 31.5 Sec. (24.2-36.6) 03/30/22 19:41 Thrombin Time 21.1 Sec. (15.1-19.6) H 03/30/22 19:41 Sodium 144 mmol/L (137-145) 03/31/22 05:23 Potassium 4.7 mmol/L (3.6-5.0) 03/31/22 05:23 Chloride 112.8 mmol/L (98-107) H 03/31/22 05:23 Carbon Dioxide 22 mmol/L (22-30) 03/31/22 05:23 Anion Gap 14 mmol/L 03/31/22 05:23 BUN 29 mg/dL (7-17) H 03/31/22 05:23 Creatinine 1.0 mg/dL (0.6-1.2) 03/31/22 05:23 Estimated GFR > 60 ml/min 03/31/22 05:23 BUN/Creatinine Ratio 29 % 03/31/22 05:23 Glucose 135 mg/dL (65-100) H 03/31/22 05:23 POC Glucose 167 mg/dL (70-105) H 04/01/22 05:54 Calcium 8.5 mg/dL (8.4-10.2) 03/31/22 05:23 Total Bilirubin 0.30 mg/dL (0.1-1.2) 03/30/22 19:41 AST 15 units/L (5-40) 03/30/22 19:41 ALT 15 units/L (7-56) 03/30/22 19:41 Alkaline Phosphatase 94 units/L (35-129) 03/30/22 19:41 Troponin T < 0.010 ng/mL (0.00-0.029) 03/30/22 19:41 Total Protein 7.0 g/dL (6.3-8.2) 03/30/22 19:41 Albumin 3.9 g/dL (3.9-5) 03/30/22 19:41 Albumin/Globulin Ratio 1.3 % 03/30/22 19:41 Urine Color Straw (Yellow) 03/31/22 09:00 Urine Turbidity Clear (Clear) 03/31/22 09:00 Urine pH 5.0 (5.0-7.0) 03/31/22 09:00 Ur Specific [place] 1.012 (1.003-1.030) 03/31/22 09:00 Urine Protein <15 mg/dl mg/dL (Negative) 03/31/22 09:00 Urine Glucose (UA) >=500 mg/dL (Negative) 03/31/22 09:00 Urine Ketones Neg mg/dL (Negative) 03/31/22 09:00 Urine Blood Neg (Negative) 03/31/22 09:00 Urine Nitrite Neg (Negative) 03/31/22 09:00 Urine Bilirubin Neg (Negative) 03/31/22 09:00 Urine Urobilinogen < 2.0 mg/dL (<2.0) 03/31/22 09:00 Ur Leukocyte Esterase Neg (Negative) 03/31/22 09:00 Urine WBC (Auto) < 1.0 /HPF (0.0-6.0) 03/31/22 09:00 Urine RBC (Auto) < 1.0 /HPF (0.0-6.0) 03/31/22 09:00 U Epithel Cells (Auto) 3.0 /HPF (0-13.0) 03/31/22 09:00 Microbiology: Microbiology 03/30/22 20:47 Peripheral/Venous Blood Culture - Preliminary NO GROWTH AFTER 24 HOURS 03/30/22 20:47 Peripheral/Venous Blood Culture - Preliminary NO GROWTH AFTER 24 HOURS Asencio/IV: Voiding Method External Female Catheter Active Medications - Current Medications Current Medications: Generic Name Dose Route Start Last Admin Trade Name Freq PRN Reason Stop Dose Admin Acetaminophen 650 mg 03/30/22 20:55 03/30/22 21:37 Acetaminophen 325 Mg Tab PO 650 mg Q4H PRN Administration Pain MILD(1-3)/Fever >100.5/GARCIA Albuterol 2.5 mg 03/30/22 20:55 Albuterol 2.5 Mg/3 Ml Nebu IH Q4HRT PRN Shortness Of Breath Allopurinol 300 mg 03/31/22 10:00 04/01/22 10:08 Allopurinol 300 Mg Tab PO 300 mg QDAY ANGELA Administration Amlodipine Besylate 10 mg 03/31/22 10:00 04/01/22 10:03 Amlodipine 10 Mg Tab PO 10 mg DAILY ANGELA Administration Aspirin 325 mg 04/01/22 10:00 04/01/22 10:03 Aspirin Ec 325 Mg Tab PO 325 mg QDAY ANGELA Administration Atorvastatin Calcium 40 mg 04/01/22 22:00 Atorvastatin 40 Mg Tab PO QHS ANGELA Dextrose 50 ml 03/30/22 20:58 Dextrose 50% In Water (25gm) 50 Ml Syringe IV Q30MIN PRN Hypoglycemia Protocol Hydromorphone HCl 0.5 mg 03/30/22 20:55 Hydromorphone 0.5 Mg/0.5 Ml Inj IV Q23H PRN Pain , Severe (7-10) Sodium Chloride 1,000 mls @ 75 mls/hr 03/30/22 21:00 03/31/22 23:24 Nacl 0.9% 1000 Ml IV 75 mls/hr DIRECT ANGELA Administration Levofloxacin/Dextrose 500 mg in 100 mls @ 100 mls/hr 03/30/22 21:00 03/31/22 21:52 Levaquin 500mg/100ml IV 100 mls/hr Q24H ANGELA Administration Protocol Insulin Human Lispro 0 unit 03/31/22 00:00 04/01/22 06:03 Insulin Lispro 100 Unit/Ml SUB-Q 2 unit Q6HR ANGELA Administration Protocol Lisinopril 20 mg 03/31/22 10:00 04/01/22 10:04 Lisinopril 20 Mg Tab PO 20 mg QDAY ANGELA Administration Ondansetron HCl 4 mg 03/30/22 20:55 03/30/22 21:35 Ondansetron 4 Mg/2 Ml Inj IV 4 mg Q8H PRN Administration Nausea And Vomiting Oxycodone/Acetaminophen 1 tab 03/30/22 20:55 Oxycodone /Acetaminophen 5-325mg Tab PO Q16H PRN Pain, Moderate (4-6) Sodium Chloride 10 ml 03/30/22 22:00 04/01/22 10:03 Sodium Chloride 0.9% 10 Ml Flush Syringe IV 10 ml BID ANGELA Administration Sodium Chloride 10 ml 03/30/22 20:55 Sodium Chloride 0.9% 10 Ml Flush Syringe IV PRN PRN LINE FLUSH
[2022-04-01 13:13] LABS: Chol/HDL Ratio 3.67 %
--- NOTE | 2022-04-01 15:35 | Cat Scan Report ---
CT angio neck INDICATION / CLINICAL INFORMATION: 76 years Female; cva. TECHNIQUE: Thin cut axial images obtained through the head during IV bolus contrast administration. S agittal, coronal, and 3 plane MIP reconstructions performed by the technologist. NASCET type criteria used evaluate stenoses. All CT scans at this location are performed using CT dose reduction for ALAR A by means of automated exposure control. COMPARISON: None available. FINDINGS: CAROTID ARTERIES: There is atherosclerotic calcification involving proximal left ICA with 50% stenosi s by NASCET to criteria. There is small focus of calcification involving proximal right ICA with mild plaque. There is no sign ificant stenosis by NASCET criteria. The remaining cervical carotid arteries appear unremarkable. VERTEBRAL ARTERIES: The beam hardening artifact obscures the proximal vertebral arteries. However, th ere is no clear evidence of significant focal stenosis involving the cervical vertebral arteries. The left vertebral artery is dominant. ARCH: The origins of the arch vessels are also obscured by the dense contrast within the adjacent jaison ous structures. However, there is no clear significant narrowing of the visualized origins of the arc h vessels. ADDITIONAL FINDINGS: There is heterogeneous prominence of the left lobe of thyroid gland compatible w ith goiter and correlation would be needed. IMPRESSION: There is atherosclerotic calcification involving proximal left ICA with 50% stenosis by NASCET criter ia. There is mild plaque involving right carotid bifurcation without significant stenosis. Signer Name: Tito Spence MD Signed: 04/01/2022 3:30 PM Workstation Name: [id number]
--- NOTE | 2022-04-01 15:47 | Cat Scan Report ---
CT angio head INDICATION / CLINICAL INFORMATION: 76 years Female; CVA. TECHNIQUE: Thin cut axial images obtained through the head during IV bolus contrast administration. S agittal, coronal, and 3 plane MIP reconstructions performed by the technologist. NASCET type criteria used evaluate stenoses. Automated exposure control utilized for radiation reduction purposes. COMPARISON: None available. FINDINGS: INTERNAL CAROTID ARTERIES: There is notable extensive atherosclerotic calcification involving intracr anial ICAs with moderate to marked segmental stenosis on the right. There is moderate stenosis involv ing intracranial left ICA involving the cavernous segment. VERTEBROBASILAR SYSTEM: There is notable irregularity of the vertebral basilar system with moderate n arrowing of the distal basilar artery also indicative of atherosclerotic disease. There is mild narro wing of the intracranial vertebral arteries and more proximal basilar artery. CEREBRAL ARTERIES: There is occlusion of the P2 segment of the right RESEARCH EXECUTIVE with old infarct and encepha lomalacia within the right occipital lobe at. There is notable irregularity of the left RESEARCH EXECUTIVE with mode rate segmental narrowing again indicative of atherosclerotic disease. There is notable irregularity of the proximal anterior circulation vessels, particularly the middle c erebral artery branches again compatible with diffuse atherosclerotic disease. There is mild to moder ate segmental narrowing without clear CT evidence of large vessel occlusion involving proximal segmen ts. ANEURYSM: There is a sacculation directed superiorly near the origin of the left callosomarginal charmaine ry measuring 2 to 3 mm sagittally compatible with small aneurysm. There is no further clear CTA evide nce of intracranial aneurysm. ADDITIONAL FINDINGS: There is extensive heterogeneous opacification of the left maxillary sinus exten ding to the left nasal cavity. IMPRESSION: There is extensive irregularity involving intracranial vessels most consistent with diffuse atheroscl erotic disease as detailed above. The findings also include notable atherosclerotic calcification involving intracranial ICAs with mode rate to marked segmental stenosis, greater on the right. There is occlusion of the P2 segment of the right RESEARCH EXECUTIVE with old right RESEARCH EXECUTIVE infarct and encephalomalacia involving occipital lobe as described. There is a 2 to 3 mm aneurysm involving the origin of the left callosomarginal artery as detailed abo ve. Signer Name: Tito Spence MD Signed: 04/01/2022 3:43 PM Workstation Name: [id number]
[2022-04-01] MEDS: SODIUM CHLORIDE 0.9% 1000 ML 1,000 ML IV SCH (17:07)
[2022-04-02] MEDS: INSULIN LISPRO 100 UNIT/ML SUB-Q SCH ×4 (00:27→18:01)
[2022-04-02] MEDS: SODIUM CHLORIDE 0.9% 1000 ML 1,000 ML IV SCH ×2 (05:19→22:31)
--- NOTE | 2022-04-02 09:46 | Progress Note ---
Assessment and Plan Assessment and Plan 76 YO Female with CVA with RHP on Antiplatelet therapy, HTN, HLD, Gout, Vascular Dementia, Cerebral Atherosclerosis, DM presents ED for evaluation of diminished cognition and was unable to provide detailed history. Patient's history provided by patient caregivers who are at bedside during exam and interview. As per caregiver the patient was found to have increased weakness and confusion t ang. Caregivers reported that they suspected the patient may have had another stroke. Patient transported to [facility] via private vehicle for the care and evaluation of the aforementioned symptoms. The patient was seen and evaluated in the emergency department. The patient was admitted with diagnosis below: - Patient Problems # Encephalopathy -R/O infectious,Toxic metabolic etiology -Ct head is with multiinfarct -MRI is noted with new left thalamic infarct -Check B12 and TSH--WNL # Vascular dementia -She is hard hearing -Verbal prompting, verbal redirection, benzodiazepine therapy as clinically indicated. 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 -consider NS to see out pt. # Systemic inflammatory response syndrome -CBC, CMP, urinalysis, chest x-ray, IV fluid resuscitation therapy, IV antibiotic therapy, supportive care. # UTI (urinary tract infection) -CBC, urinalysis, IV antibiotic therapy, repeat CBC in a.m. # Volume depletion -IV fluid resuscitation therapy, monitor urine output every shift, monitor fluid balance. # DVT prophylaxis -SCD to bilateral lower extremities while in bed PLAN 1- Maintain [id number] mg daily and Lipitor 40 mg dailt 2- PT/St evaluate 3- NS follow up 4- better control BP and Suger will follow as needed Subjective Date of service: 04/02/22 Interval history: doing well no complaint awake wants to go home disoriented to place and date , know partially her birthday, no aphasia CTA brain and neck is noted MRI noted no weakness is appreciated today Echo is with mild LVH 55-60% EF LDL#67 -A1C#7.5 B12 and TSH wnl. Objective - Vital Sign Vital Signs - 12hr 04/02/22 04:53 Temperature 98.4 F Pulse Rate 76 Respiratory 18 Rate Blood Pressure 137/65 O2 Sat by Pulse 95 Oximetry - General Apperance Constitutional: comfortable - EENT EENT: PERRL, mucous membranes moist - Respiratory Respiratory: lungs clear, rhonchi - Cardiovascular Cardiovascular: regular rate, normal S1, normal S2 Extremities: no peripheral edema bilat - Gastrointestinal Gastrointestinal: normoactive bowel sounds - Integumentary Integumentary: normal - Neurologic Cranial nerve examination: PERRL, EOMI, intact Speech examination: intact Detailed motor examination: grossly full strength in - Laboratory Findings CBC and BMP: 03/31/22 05:23 03/31/22 05:23 Abnormal Lab Findings: Abnormal Labs 03/30/22 03/30/22 03/30/22 19:41 19:41 19:41 WBC 12.7 H RBC 5.24 H Hct 43.3 H MCH 26 L [place] # (Auto) 0.9 H Seg Neutrophils % Seg Neutrophils # 8.7 H Thrombin Time 21.1 H Chloride 110.2 H BUN 32 H Glucose 134 H POC Glucose Hemoglobin A1c Triglycerides HDL Cholesterol 03/31/22 03/31/22 03/31/22 01:49 05:23 05:23 WBC RBC Hct MCH 27 L [place] # (Auto) Seg Neutrophils % 70.5 H Seg Neutrophils # Thrombin Time Chloride 112.8 H BUN 29 H Glucose 135 H POC Glucose 113 H Hemoglobin A1c Triglycerides HDL Cholesterol 03/31/22 03/31/22 03/31/22 05:50 12:13 23:45 WBC RBC Hct MCH [place] # (Auto) Seg Neutrophils % Seg Neutrophils # Thrombin Time Chloride BUN Glucose POC Glucose 128 H 159 H 154 H Hemoglobin A1c Triglycerides HDL Cholesterol 04/01/22 04/01/22 04/01/22 05:54 11:44 12:30 WBC RBC Hct MCH [place] # (Auto) Seg Neutrophils % Seg Neutrophils # Thrombin Time Chloride BUN Glucose POC Glucose 167 H 165 H Hemoglobin A1c 7.5 H Triglycerides HDL Cholesterol 04/01/22 04/01/22 04/01/22 12:30 18:12 23:20 WBC RBC Hct MCH [place] # (Auto) Seg Neutrophils % Seg Neutrophils # Thrombin Time Chloride BUN Glucose POC Glucose 218 H 134 H Hemoglobin A1c Triglycerides 151 H HDL Cholesterol 31 L 04/02/22 05:23 WBC RBC Hct MCH [place] # (Auto) Seg Neutrophils % Seg Neutrophils # Thrombin Time Chloride BUN Glucose POC Glucose 183 H Hemoglobin A1c Triglycerides HDL Cholesterol
--- NOTE | 2022-04-02 10:39 | Progress Note ---
Assessment and Plan Assessment and plan: 76 YO Female with CVA with RHP on Antiplatelet therapy, HTN, HLD, Gout, Vascular Dementia, Cerebral Atherosclerosis, DM presents ED for evaluation of diminished cognition and was unable to provide detailed history. Patient's history provided by patient caregivers who are at bedside during exam and interview. As per caregiver the patient was found to have increased weakness and confusion today. Caregivers reported that they suspected the patient may have had another stroke. Patient transported to [facility] via private vehicle for the care and evaluation of the aforementioned symptoms. The patient was seen and evaluated in the emergency department. The patient was admitted with diagnosis below: Acute left thalamic CVA. SIRS. Patient meets criteria given the tachycardia, leukocytosis and altered mentation. No signs of infection Diabetes mellitus type 2 Hypertension. Metabolic encephalopathy Vascular dementia Cerebral atherosclerosis 03/31/2022. Urinalysis does not reveal any signs of infection. We will follow- up blood cultures for further evaluation. Continue empiric antibiotics for now. We will proceed with further follow-up and rule out CVA. Check MRI of brain. Patient appears to be back to her baseline mental status. ? TIA. 04/01/2022. MRI reveals acute anterior left thalamic CVA measuring 1.4 cm. We will initiate aspirin and Lipitor for secondary prevention. Await echocardiogram results to rule out thromboembolic source. Neurology has been consulted. Await physical therapy evaluation. Patient's BG has been stable not requiring home Lantus insulin. We will continue sliding scale regular insulin and monitor closely 04/02/2022. Neurology evaluated the patient and recommends CTA of the head and neck. Await PT evaluation for disposition. Continue aspirin and Lipitor. History Interval history: No new issues overnight. Hospitalist Physical - Constitutional Vitals: Temp Pulse Resp BP Pulse Ox 98.4 F 76 18 137/65 95 04/02/22 04:53 04/02/22 04:53 04/02/22 04:53 04/02/22 04:53 04/02/22 04:53 General appearance: Present: no acute distress - EENT Eyes: Present: PERRL, EOM intact ENT: hearing intact, clear oral mucosa, dentition normal - Neck Neck: Present: supple, normal ROM - Respiratory Respiratory effort: normal Respiratory: bilateral: CTA - Cardiovascular Rhythm: regular Heart Sounds: Present: S1 & S2. Absent: gallop, rub - Extremities Extremities: no ischemia, No edema, Full ROM - Abdominal General gastrointestinal: soft, non-tender, non-distended, normal bowel sounds - Integumentary Integumentary: Present: clear, warm, dry - Neurologic Neurologic: CNII-XII intact, moves all extremities HEART Score - HEART Score Troponin: Troponin T < 0.010 ng/mL (0.00-0.029) 03/30/22 19:41 Results - Labs CBC & Chem 7: 03/31/22 05:23 03/31/22 05:23 Labs: Laboratory Last Values WBC 10.4 K/mm3 (4.5-11.0) 03/31/22 05:23 RBC 4.95 M/mm3 (3.65-5.03) 03/31/22 05:23 Hgb 13.1 gm/dl (10.1-14.3) 03/31/22 05:23 Hct 41.0 % (30.3-42.9) 03/31/22 05:23 MCV 83 fl (79-97) 03/31/22 05:23 MCH 27 pg (28-32) L 03/31/22 05:23 MCHC 32 % (30-34) 03/31/22 05:23 RDW 14.2 % (13.2-15.2) 03/31/22 05:23 Plt Count 247 K/mm3 (140-440) 03/31/22 05:23 Lymph % (Auto) 18.9 % (13.4-35.0) 03/31/22 05:23 [place] % (Auto) 7.2 % (0.0-7.3) 03/31/22 05:23 Eos % (Auto) 2.9 % (0.0-4.3) 03/31/22 05:23 Baso % (Auto) 0.5 % (0.0-1.8) 03/31/22 05:23 Lymph # (Auto) 2.0 K/mm3 (1.2-5.4) 03/31/22 05:23 [place] # (Auto) 0.8 K/mm3 (0.0-0.8) 03/31/22 05:23 Eos # (Auto) 0.3 K/mm3 (0.0-0.4) 03/31/22 05:23 Baso # (Auto) 0.0 K/mm3 (0.0-0.1) 03/31/22 05:23 Seg Neutrophils % 70.5 % (40.0-70.0) H 03/31/22 05:23 Seg Neutrophils # 7.3 K/mm3 (1.8-7.7) 03/31/22 05:23 PT 13.8 Sec. (12.2-14.9) 03/30/22 19:41 INR 0.96 (0.87-1.13) 03/30/22 19:41 APTT 31.5 Sec. (24.2-36.6) 03/30/22 19:41 Thrombin Time 21.1 Sec. (15.1-19.6) H 03/30/22 19:41 Sodium 144 mmol/L (137-145) 03/31/22 05:23 Potassium 4.7 mmol/L (3.6-5.0) 03/31/22 05:23 Chloride 112.8 mmol/L (98-107) H 03/31/22 05:23 Carbon Dioxide 22 mmol/L (22-30) 03/31/22 05:23 Anion Gap 14 mmol/L 03/31/22 05:23 BUN 29 mg/dL (7-17) H 03/31/22 05:23 Creatinine 1.0 mg/dL (0.6-1.2) 03/31/22 05:23 Estimated GFR > 60 ml/min 03/31/22 05:23 BUN/Creatinine Ratio 29 % 03/31/22 05:23 Glucose 135 mg/dL (65-100) H 03/31/22 05:23 POC Glucose 183 mg/dL (70-105) H 04/02/22 05:23 Hemoglobin A1c 7.5 % (4-6) H 04/01/22 12:30 Calcium 8.5 mg/dL (8.4-10.2) 03/31/22 05:23 Total Bilirubin 0.30 mg/dL (0.1-1.2) 03/30/22 19:41 AST 15 units/L (5-40) 03/30/22 19:41 ALT 15 units/L (7-56) 03/30/22 19:41 Alkaline Phosphatase 94 units/L (35-129) 03/30/22 19:41 Troponin T < 0.010 ng/mL (0.00-0.029) 03/30/22 19:41 Total Protein 7.0 g/dL (6.3-8.2) 03/30/22 19:41 Albumin 3.9 g/dL (3.9-5) 03/30/22 19:41 Albumin/Globulin Ratio 1.3 % 03/30/22 19:41 Triglycerides 151 mg/dL (2-149) H 04/01/22 12:30 Cholesterol 114 mg/dL (50-199) 04/01/22 12:30 LDL Cholesterol Direct 67 mg/dL (50-130) 04/01/22 12:30 HDL Cholesterol 31 mg/dL (40-59) L 04/01/22 12:30 Cholesterol/HDL Ratio 3.67 % 04/01/22 12:30 Vitamin B12 373.7 pg/mL (211-911) 04/01/22 12:30 TSH 1.130 mlU/mL (0.270-4.200) 04/01/22 12:30 Urine Color Straw (Yellow) 03/31/22 09:00 Urine Turbidity Clear (Clear) 03/31/22 09:00 Urine pH 5.0 (5.0-7.0) 03/31/22 09:00 Ur Specific [place] 1.012 (1.003-1.030) 03/31/22 09:00 Urine Protein <15 mg/dl mg/dL (Negative) 03/31/22 09:00 Urine Glucose (UA) >=500 mg/dL (Negative) 03/31/22 09:00 Urine Ketones Neg mg/dL (Negative) 03/31/22 09:00 Urine Blood Neg (Negative) 03/31/22 09:00 Urine Nitrite Neg (Negative) 03/31/22 09:00 Urine Bilirubin Neg (Negative) 03/31/22 09:00 Urine Urobilinogen < 2.0 mg/dL (<2.0) 03/31/22 09:00 Ur Leukocyte Esterase Neg (Negative) 03/31/22 09:00 Urine WBC (Auto) < 1.0 /HPF (0.0-6.0) 03/31/22 09:00 Urine RBC (Auto) < 1.0 /HPF (0.0-6.0) 03/31/22 09:00 U Epithel Cells (Auto) 3.0 /HPF (0-13.0) 03/31/22 09:00 Microbiology: Microbiology 03/30/22 20:47 Peripheral/Venous Blood Culture - Preliminary NO GROWTH AFTER 48 HOURS 03/30/22 20:47 Peripheral/Venous Blood Culture - Preliminary NO GROWTH AFTER 48 HOURS Asencio/IV: Voiding Method Toilet Active Medications - Current Medications Current Medications: Generic Name Dose Route Start Last Admin Trade Name Freq PRN Reason Stop Dose Admin Acetaminophen 650 mg 03/30/22 20:55 03/30/22 21:37 Acetaminophen 325 Mg Tab PO 650 mg Q4H PRN Administration Pain MILD(1-3)/Fever >100.5/GARCIA Albuterol 2.5 mg 03/30/22 20:55 Albuterol 2.5 Mg/3 Ml Nebu IH Q4HRT PRN Shortness Of Breath Allopurinol 300 mg 03/31/22 10:00 04/01/22 10:08 Allopurinol 300 Mg Tab PO 300 mg QDAY ANGELA Administration Amlodipine Besylate 10 mg 03/31/22 10:00 04/01/22 10:03 Amlodipine 10 Mg Tab PO 10 mg DAILY ANGELA Administration Aspirin 325 mg 04/01/22 10:00 04/01/22 10:03 Aspirin Ec 325 Mg Tab PO 325 mg QDAY ANGELA Administration Atorvastatin Calcium 40 mg 04/01/22 22:00 04/01/22 21:03 Atorvastatin 40 Mg Tab PO 40 mg QHS ANGELA Administration Dextrose 50 ml 03/30/22 20:58 Dextrose 50% In Water (25gm) 50 Ml Syringe IV Q30MIN PRN Hypoglycemia Protocol Hydromorphone HCl 0.5 mg 03/30/22 20:55 Hydromorphone 0.5 Mg/0.5 Ml Inj IV Q23H PRN Pain , Severe (7-10) Sodium Chloride 1,000 mls @ 75 mls/hr 03/30/22 21:00 04/02/22 05:19 Nacl 0.9% 1000 Ml IV 75 mls/hr DIRECT ANGELA Administration Levofloxacin/Dextrose 500 mg in 100 mls @ 100 mls/hr 03/30/22 21:00 04/01/22 20:36 Levaquin 500mg/100ml IV 04/03/22 23:59 100 mls/hr Q24H ANGELA Administration Protocol Insulin Human Lispro 0 unit 03/31/22 00:00 04/02/22 00:27 Insulin Lispro 100 Unit/Ml SUB-Q Not Given Q6HR [facility] Protocol Lisinopril 20 mg 03/31/22 10:00 04/01/22 10:04 Lisinopril 20 Mg Tab PO 20 mg QDAY ANGELA Administration Ondansetron HCl 4 mg 03/30/22 20:55 03/30/22 21:35 Ondansetron 4 Mg/2 Ml Inj IV 4 mg Q8H PRN Administration Nausea And Vomiting Oxycodone/Acetaminophen 1 tab 03/30/22 20:55 Oxycodone /Acetaminophen 5-325mg Tab PO Q16H PRN Pain, Moderate (4-6) Sodium Chloride 10 ml 03/30/22 22:00 04/01/22 21:04 Sodium Chloride 0.9% 10 Ml Flush Syringe IV 10 ml BID ANGELA Administration Sodium Chloride 10 ml 03/30/22 20:55 Sodium Chloride 0.9% 10 Ml Flush Syringe IV PRN PRN LINE FLUSH
[2022-04-02] MEDS: LISINOPRIL 20 MG TAB PO SCH (11:43)
[2022-04-02] MEDS: amLODIPine 10 MG TAB PO SCH (11:44)
[2022-04-02] MEDS: ASPIRIN EC 325 MG TAB PO SCH (11:44)
[2022-04-02] MEDS: allopurinoL 300 MG TAB PO SCH (11:45)
[2022-04-03] MEDS: INSULIN LISPRO 100 UNIT/ML SUB-Q SCH ×5 (07:20→22:00)
[2022-04-03] MEDS: ASPIRIN EC 325 MG TAB PO SCH (09:08)
[2022-04-03] MEDS: allopurinoL 300 MG TAB PO SCH (09:08)
[2022-04-03] MEDS: LISINOPRIL 20 MG TAB PO SCH (09:08)
[2022-04-03] MEDS: amLODIPine 10 MG TAB PO SCH (09:08)
[2022-04-03] MEDS: SODIUM CHLORIDE 0.9% 1000 ML 1,000 ML IV SCH (11:33)
--- NOTE | 2022-04-03 12:21 | Progress Note ---
Assessment and Plan Assessment and plan: 76 YO Female with CVA with RHP on Antiplatelet therapy, HTN, HLD, Gout, Vascular Dementia, Cerebral Atherosclerosis, DM presents ED for evaluation of diminished cognition and was unable to provide detailed history. Patient's history provided by patient caregivers who are at bedside during exam and interview. As per caregiver the patient was found to have increased weakness and confusion today. Caregivers reported that they suspected the patient may have had another stroke. Patient transported to [facility] via private vehicle for the care and evaluation of the aforementioned symptoms. The patient was seen and evaluated in the emergency department. The patient was admitted with diagnosis below: Acute left thalamic CVA. SIRS. Patient meets criteria given the tachycardia, leukocytosis and altered mentation. No signs of infection Diabetes mellitus type 2 Hypertension. Metabolic encephalopathy Vascular dementia Cerebral atherosclerosis 03/31/2022. Urinalysis does not reveal any signs of infection. We will follow- up blood cultures for further evaluation. Continue empiric antibiotics for now. We will proceed with further follow-up and rule out CVA. Check MRI of brain. Patient appears to be back to her baseline mental status. ? TIA. 04/01/2022. MRI reveals acute anterior left thalamic CVA measuring 1.4 cm. We will initiate aspirin and Lipitor for secondary prevention. Await echocardiogram results to rule out thromboembolic source. Neurology has been consulted. Await physical therapy evaluation. Patient's BG has been stable not requiring home Lantus insulin. We will continue sliding scale regular insulin and monitor closely 04/02/2022. Neurology evaluated the patient and recommends CTA of the head and neck. Await PT evaluation for disposition. Continue aspirin and Lipitor. 04/03/2022. CT of the head and neck reveals extensive irregularity involving int racranial vessels most consistent with diffuse atherosclerotic disease. Findings also include calcification involving intracranial ICAs with moderate to marked segmental stenosis greatest on the right. There is occlusion of the P2 segment of the right [employer] with old right [employer]UL[employer] infarct and encephalomalacia involving occipital lobe. Patient also has atherosclerotic calcification involving proximal left ICA with 50% stenosis. Mild plaque involving right carotid bifurcation with significant stenosis. Neurology recommends neurosurgery consultation. We will also consult vascular for further evalu ation. Continue aspirin and Lipitor. Physical therapy recommends home health PT and rolling walker History Interval history: No new issues overnight. Hospitalist Physical - Constitutional Vitals: Temp Pulse Resp BP Pulse Ox 97.9 F 72 18 152/71 100 04/02/22 22:39 04/02/22 22:39 04/02/22 22:39 04/02/22 22:40 04/03/22 07:12 General appearance: Present: no acute distress - EENT Eyes: Present: PERRL, EOM intact ENT: hearing intact, clear oral mucosa, dentition normal - Neck Neck: Present: supple, normal ROM - Respiratory Respiratory effort: normal Respiratory: bilateral: CTA - Cardiovascular Rhythm: regular Heart Sounds: Present: S1 & S2. Absent: gallop, rub - Extremities Extremities: no ischemia, No edema, Full ROM - Abdominal General gastrointestinal: soft, non-tender, non-distended, normal bowel sounds - Integumentary Integumentary: Present: clear, warm, dry - Neurologic Neurologic: CNII-XII intact, moves all extremities HEART Score - HEART Score Troponin: Troponin T < 0.010 ng/mL (0.00-0.029) 03/30/22 19:41 Results - Labs CBC & Chem 7: 03/31/22 05:23 03/31/22 05:23 Labs: Laboratory Last Values WBC 10.4 K/mm3 (4.5-11.0) 03/31/22 05:23 RBC 4.95 M/mm3 (3.65-5.03) 03/31/22 05:23 Hgb 13.1 gm/dl (10.1-14.3) 03/31/22 05:23 Hct 41.0 % (30.3-42.9) 03/31/22 05:23 MCV 83 fl (79-97) 03/31/22 05:23 MCH 27 pg (28-32) L 03/31/22 05:23 MCHC 32 % (30-34) 03/31/22 05:23 RDW 14.2 % (13.2-15.2) 03/31/22 05:23 Plt Count 247 K/mm3 (140-440) 03/31/22 05:23 Lymph % (Auto) 18.9 % (13.4-35.0) 03/31/22 05:23 Mcintosh % (Auto) 7.2 % (0.0-7.3) 03/31/22 05:23 Eos % (Auto) 2.9 % (0.0-4.3) 03/31/22 05:23 Baso % (Auto) 0.5 % (0.0-1.8) 03/31/22 05:23 Lymph # (Auto) 2.0 K/mm3 (1.2-5.4) 03/31/22 05:23 Mcintosh # (Auto) 0.8 K/mm3 (0.0-0.8) 03/31/22 05:23 Eos # (Auto) 0.3 K/mm3 (0.0-0.4) 03/31/22 05:23 Baso # (Auto) 0.0 K/mm3 (0.0-0.1) 03/31/22 05:23 Seg Neutrophils % 70.5 % (40.0-70.0) H 03/31/22 05:23 Seg Neutrophils # 7.3 K/mm3 (1.8-7.7) 03/31/22 05:23 PT 13.8 Sec. (12.2-14.9) 03/30/22 19:41 INR 0.96 (0.87-1.13) 03/30/22 19:41 APTT 31.5 Sec. (24.2-36.6) 03/30/22 19:41 Thrombin Time 21.1 Sec. (15.1-19.6) H 03/30/22 19:41 Sodium 144 mmol/L (137-145) 03/31/22 05:23 Potassium 4.7 mmol/L (3.6-5.0) 03/31/22 05:23 Chloride 112.8 mmol/L (98-107) H 03/31/22 05:23 Carbon Dioxide 22 mmol/L (22-30) 03/31/22 05:23 Anion Gap 14 mmol/L 03/31/22 05:23 BUN 29 mg/dL (7-17) H 03/31/22 05:23 Creatinine 1.0 mg/dL (0.6-1.2) 03/31/22 05:23 Estimated GFR > 60 ml/min 03/31/22 05:23 BUN/Creatinine Ratio 29 % 03/31/22 05:23 Glucose 135 mg/dL (65-100) H 03/31/22 05:23 POC Glucose 171 mg/dL (70-105) H 04/03/22 11:16 Hemoglobin A1c 7.5 % (4-6) H 04/01/22 12:30 Calcium 8.5 mg/dL (8.4-10.2) 03/31/22 05:23 Total Bilirubin 0.30 mg/dL (0.1-1.2) 03/30/22 19:41 AST 15 units/L (5-40) 03/30/22 19:41 ALT 15 units/L (7-56) 03/30/22 19:41 Alkaline Phosphatase 94 units/L (35-129) 03/30/22 19:41 Troponin T < 0.010 ng/mL (0.00-0.029) 03/30/22 19:41 Total Protein 7.0 g/dL (6.3-8.2) 03/30/22 19:41 Albumin 3.9 g/dL (3.9-5) 03/30/22 19:41 Albumin/Globulin Ratio 1.3 % 03/30/22 19:41 Triglycerides 151 mg/dL (2-149) H 04/01/22 12:30 Cholesterol 114 mg/dL (50-199) 04/01/22 12:30 LDL Cholesterol Direct 67 mg/dL (50-130) 04/01/22 12:30 HDL Cholesterol 31 mg/dL (40-59) L 04/01/22 12:30 Cholesterol/HDL Ratio 3.67 % 04/01/22 12:30 Vitamin B12 373.7 pg/mL (211-911) 04/01/22 12:30 TSH 1.130 mlU/mL (0.270-4.200) 04/01/22 12:30 Urine Color Straw (Yellow) 03/31/22 09:00 Urine Turbidity Clear (Clear) 03/31/22 09:00 Urine pH 5.0 (5.0-7.0) 03/31/22 09:00 Ur Specific [place] 1.012 (1.003-1.030) 03/31/22 09:00 Urine Protein <15 mg/dl mg/dL (Negative) 03/31/22 09:00 Urine Glucose (UA) >=500 mg/dL (Negative) 03/31/22 09:00 Urine Ketones Neg mg/dL (Negative) 03/31/22 09:00 Urine Blood Neg (Negative) 03/31/22 09:00 Urine Nitrite Neg (Negative) 03/31/22 09:00 Urine Bilirubin Neg (Negative) 03/31/22 09:00 Urine Urobilinogen < 2.0 mg/dL (<2.0) 03/31/22 09:00 Ur Leukocyte Esterase Neg (Negative) 03/31/22 09:00 Urine WBC (Auto) < 1.0 /HPF (0.0-6.0) 03/31/22 09:00 Urine RBC (Auto) < 1.0 /HPF (0.0-6.0) 03/31/22 09:00 U Epithel Cells (Auto) 3.0 /HPF (0-13.0) 03/31/22 09:00 Microbiology: Microbiology 03/30/22 20:47 Peripheral/Venous Blood Culture - Preliminary NO GROWTH AFTER 72 HOURS 03/30/22 20:47 Peripheral/Venous Blood Culture - Preliminary NO GROWTH AFTER 72 HOURS Asencio/IV: Voiding Method External Female Catheter Active Medications - Current Medications Current Medications: Generic Name Dose Route Start Last Admin Trade Name Freq PRN Reason Stop Dose Admin Acetaminophen 650 mg 03/30/22 20:55 03/30/22 21:37 Acetaminophen 325 Mg Tab PO 650 mg Q4H PRN Administration Pain MILD(1-3)/Fever >100.5/GARCIA Albuterol 2.5 mg 03/30/22 20:55 Albuterol 2.5 Mg/3 Ml Nebu IH Q4HRT PRN Shortness Of Breath Allopurinol 300 mg 03/31/22 10:00 04/03/22 09:08 Allopurinol 300 Mg Tab PO 300 mg QDAY ANGELA Administration Amlodipine Besylate 10 mg 03/31/22 10:00 04/03/22 09:08 Amlodipine 10 Mg Tab PO 10 mg DAILY ANGELA Administration Aspirin 325 mg 04/01/22 10:00 04/03/22 09:08 Aspirin Ec 325 Mg Tab PO 325 mg QDAY ANGELA Administration Atorvastatin Calcium 40 mg 04/01/22 22:00 04/02/22 22:30 Atorvastatin 40 Mg Tab PO 40 mg QHS ANGELA Administration Dextrose 50 ml 03/30/22 20:58 Dextrose 50% In Water (25gm) 50 Ml Syringe IV Q30MIN PRN Hypoglycemia Protocol Hydromorphone HCl 0.5 mg 03/30/22 20:55 Hydromorphone 0.5 Mg/0.5 Ml Inj IV Q23H PRN Pain , Severe (7-10) Sodium Chloride 1,000 mls @ 75 mls/hr 03/30/22 21:00 04/03/22 11:33 Nacl 0.9% 1000 Ml IV 75 mls/hr DIRECT ANGELA Administration Levofloxacin/Dextrose 500 mg in 100 mls @ 100 mls/hr 03/30/22 21:00 04/03/22 03:56 Levaquin 500mg/100ml IV 04/03/22 23:59 Infused Q24H ANGELA Infusion Protocol Insulin Human Lispro 0 unit 03/31/22 00:00 04/03/22 11:31 Insulin Lispro 100 Unit/Ml SUB-Q 2 unit Q6HR ANGELA Administration Protocol Lisinopril 20 mg 03/31/22 10:00 04/03/22 09:08 Lisinopril 20 Mg Tab PO 20 mg QDAY ANGELA Administration Ondansetron HCl 4 mg 03/30/22 20:55 03/30/22 21:35 Ondansetron 4 Mg/2 Ml Inj IV 4 mg Q8H PRN Administration Nausea And Vomiting Oxycodone/Acetaminophen 1 tab 03/30/22 20:55 Oxycodone /Acetaminophen 5-325mg Tab PO Q16H PRN Pain, Moderate (4-6) Sodium Chloride 10 ml 03/30/22 22:00 04/03/22 09:09 Sodium Chloride 0.9% 10 Ml Flush Syringe IV 10 ml BID ANGELA Administration Sodium Chloride 10 ml 03/30/22 20:55 Sodium Chloride 0.9% 10 Ml Flush Syringe IV PRN PRN LINE FLUSH
--- NOTE | 2022-04-04 08:21 | Progress Note ---
Assessment and Plan Assessment and plan: 76 YO Female with CVA with RHP on Antiplatelet therapy, HTN, HLD, Gout, Vascular Dementia, Cerebral Atherosclerosis, DM presents ED for evaluation of diminished cognition and was unable to provide detailed history. Patient's history provided by patient caregivers who are at bedside during exam and interview. As per caregiver the patient was found to have increased weakness and confusion today. Caregivers reported that they suspected the patient may have had another stroke. Patient transported to [facility] via private vehicle for the care and evaluation of the aforementioned symptoms. The patient was seen and evaluated in the emergency department. The patient was admitted with diagnosis below: Acute left thalamic CVA. Continue aspirin and statin, physical therapy occupational therapy rehabilitation Neurology following, home with home health upon discharge SIRS. Patient meets criteria given the tachycardia, leukocytosis and altered mentation. No signs of infection Diabetes mellitus type 2 Hypertension. Metabolic encephalopathy Vascular dementia Cerebral atherosclerosis Left internal carotid artery stenosis ; In the setting of left thalamic stroke Vascular/IR evaluated the patient Recommend aggressive management with antiplatelet therapy and high-dose statin therapy and follow-up carotid Doppler after 4 to 6 weeks, follow-up with vascular. 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 On CTA head Outpatient neurosurgery follow-up for further evaluation and management upon discharge CTA head; circulation directed superiorly near the origin of the left callosal marginal artery measuring 2 to 3 mm sagittally compatible with small aneurysm no further clear CT evidence of intracranial aneurysm neurology recommend outpatient neurosurgical evaluation upon discharge Discharge planning; PT recommend home health PT and rolling walker, saturating well on room air Possible discharge home tomorrow if stable Brief history and daily Hospital course; 03/31/2022. Urinalysis does not reveal any signs of infection. We will follow- up blood cultures for further evaluation. Continue empiric antibiotics for now. We will proceed with further follow-up and rule out CVA. Check MRI of brain. Patient appears to be back to her baseline mental status. ? TIA. 04/01/2022. MRI reveals acute anterior left thalamic CVA measuring 1.4 cm. We w ill initiate aspirin and Lipitor for secondary prevention. Await echocardiogram results to rule out thromboembolic source. Neurology has been consulted. Await physical therapy evaluation. Patient's BG has been stable not requiring home Lantus insulin. We will continue sliding scale regular insulin and monitor closely 04/02/2022. Neurology evaluated the patient and recommends CTA of the head and neck. Await PT evaluation for disposition. Continue aspirin and Lipitor. 04/03/2022. CT of the head and neck reveals extensive irregularity involving intracranial vessels most consistent with diffuse atherosclerotic disease. Findings also include calcification involving intracranial ICAs with moderate to marked segmental stenosis greatest on the right. There is occlusion of the P2 segment of the right [employer] with old right [employer]OR infarct and encephalomalacia involving occipital lobe. Patient also has atherosclerotic calcification involving proximal left ICA with 50% stenosis. Mild plaque involving right carotid bifurcation with significant stenosis. Neurology recommends neurosurgery consultation. We will also consult vascular for further evaluation. Continue aspirin and Lipitor. Physical therapy recommends home health PT and rolling walker 04/04/2022; possible discharge tomorrow with home health PT and rolling walker History Interval history: I have seen and examined the patient at the bedside Patient's chart and medications reviewed Patient feels slightly better No new complaints Vascular evaluation recommendation noted and appreciated Recommend high-dose statin and antiplatelets Plavix Repeat carotid Doppler and follow-up with vascular in 4 to 6 weeks If worsening carotid stenosis, consider carotid endarterectomy Hospitalist Physical - Constitutional Vitals: Temp Pulse Resp BP Pulse Ox 98.2 F 80 20 149/71 95 04/04/22 05:15 04/04/22 05:15 04/04/22 05:15 04/04/22 05:15 04/04/22 05:15 General appearance: Present: no acute distress, well-nourished - EENT Eyes: Present: PERRL, EOM intact - Neck Neck: Present: supple, normal ROM - Respiratory Respiratory effort: normal Respiratory: bilateral: diminished, negative: rales, rhonchi, wheezing - Cardiovascular Rhythm: regular Heart Sounds: Present: S1 & S2 - Extremities Extremities: no ischemia, No edema - Abdominal General gastrointestinal: soft, non-tender, non-distended, normal bowel sounds - Integumentary Integumentary: Present: clear, warm - Psychiatric Psychiatric: appropriate mood/affect, cooperative - Neurologic Neurologic: moves all extremities (Acute CVA with residual weakness) HEART Score - HEART Score Troponin: Troponin T < 0.010 ng/mL (0.00-0.029) 03/30/22 19:41 Results - Labs CBC & Chem 7: 03/31/22 05:23 03/31/22 05:23 Labs: Laboratory Last Values WBC 10.4 K/mm3 (4.5-11.0) 03/31/22 05:23 RBC 4.95 M/mm3 (3.65-5.03) 03/31/22 05:23 Hgb 13.1 gm/dl (10.1-14.3) 03/31/22 05:23 Hct 41.0 % (30.3-42.9) 03/31/22 05:23 MCV 83 fl (79-97) 03/31/22 05:23 MCH 27 pg (28-32) L 03/31/22 05:23 MCHC 32 % (30-34) 03/31/22 05:23 RDW 14.2 % (13.2-15.2) 03/31/22 05:23 Plt Count 247 K/mm3 (140-440) 03/31/22 05:23 Lymph % (Auto) 18.9 % (13.4-35.0) 03/31/22 05:23 [place]ay % (Auto) 7.2 % (0.0-7.3) 03/31/22 05:23 Eos % (Auto) 2.9 % (0.0-4.3) 03/31/22 05:23 Baso % (Auto) 0.5 % (0.0-1.8) 03/31/22 05:23 Lymph # (Auto) 2.0 K/mm3 (1.2-5.4) 03/31/22 05:23 Quay # (Auto) 0.8 K/mm3 (0.0-0.8) 03/31/22 05:23 Eos # (Auto) 0.3 K/mm3 (0.0-0.4) 03/31/22 05:23 Baso # (Auto) 0.0 K/mm3 (0.0-0.1) 03/31/22 05:23 Seg Neutrophils % 70.5 % (40.0-70.0) H 03/31/22 05:23 Seg Neutrophils # 7.3 K/mm3 (1.8-7.7) 03/31/22 05:23 PT 13.8 Sec. (12.2-14.9) 03/30/22 19:41 INR 0.96 (0.87-1.13) 03/30/22 19:41 APTT 31.5 Sec. (24.2-36.6) 03/30/22 19:41 Thrombin Time 21.1 Sec. (15.1-19.6) H 03/30/22 19:41 Sodium 144 mmol/L (137-145) 03/31/22 05:23 Potassium 4.7 mmol/L (3.6-5.0) 03/31/22 05:23 Chloride 112.8 mmol/L (98-107) H 03/31/22 05:23 Carbon Dioxide 22 mmol/L (22-30) 03/31/22 05:23 Anion Gap 14 mmol/L 03/31/22 05:23 BUN 29 mg/dL (7-17) H 03/31/22 05:23 Creatinine 1.0 mg/dL (0.6-1.2) 03/31/22 05:23 Estimated GFR > 60 ml/min 03/31/22 05:23 BUN/Creatinine Ratio 29 % 03/31/22 05:23 Glucose 135 mg/dL (65-100) H 03/31/22 05:23 POC Glucose 166 mg/dL (70-105) H 04/04/22 05:45 Hemoglobin A1c 7.5 % (4-6) H 04/01/22 12:30 Calcium 8.5 mg/dL (8.4-10.2) 03/31/22 05:23 Total Bilirubin 0.30 mg/dL (0.1-1.2) 03/30/22 19:41 AST 15 units/L (5-40) 03/30/22 19:41 ALT 15 units/L (7-56) 03/30/22 19:41 Alkaline Phosphatase 94 units/L (35-129) 03/30/22 19:41 Troponin T < 0.010 ng/mL (0.00-0.029) 03/30/22 19:41 Total Protein 7.0 g/dL (6.3-8.2) 03/30/22 19:41 Albumin 3.9 g/dL (3.9-5) 03/30/22 19:41 Albumin/Globulin Ratio 1.3 % 03/30/22 19:41 Triglycerides 151 mg/dL (2-149) H 04/01/22 12:30 Cholesterol 114 mg/dL (50-199) 04/01/22 12:30 LDL Cholesterol Direct 67 mg/dL (50-130) 04/01/22 12:30 HDL Cholesterol 31 mg/dL (40-59) L 04/01/22 12:30 Cholesterol/HDL Ratio 3.67 % 04/01/22 12:30 Vitamin B12 373.7 pg/mL (211-911) 04/01/22 12:30 TSH 1.130 mlU/mL (0.270-4.200) 04/01/22 12:30 Urine Color Straw (Yellow) 03/31/22 09:00 Urine Turbidity Clear (Clear) 03/31/22 09:00 Urine pH 5.0 (5.0-7.0) 03/31/22 09:00 Ur Specific [place] 1.012 (1.003-1.030) 03/31/22 09:00 Urine Protein <15 mg/dl mg/dL (Negative) 03/31/22 09:00 Urine Glucose (UA) >=500 mg/dL (Negative) 03/31/22 09:00 Urine Ketones Neg mg/dL (Negative) 03/31/22 09:00 Urine Blood Neg (Negative) 03/31/22 09:00 Urine Nitrite Neg (Negative) 03/31/22 09:00 Urine Bilirubin Neg (Negative) 03/31/22 09:00 Urine Urobilinogen < 2.0 mg/dL (<2.0) 03/31/22 09:00 Ur Leukocyte Esterase Neg (Negative) 03/31/22 09:00 Urine WBC (Auto) < 1.0 /HPF (0.0-6.0) 03/31/22 09:00 Urine RBC (Auto) < 1.0 /HPF (0.0-6.0) 03/31/22 09:00 U Epithel Cells (Auto) 3.0 /HPF (0-13.0) 03/31/22 09:00 Microbiology: Microbiology 03/30/22 20:47 Peripheral/Venous Blood Culture - Preliminary NO GROWTH AFTER 4 DAYS 03/30/22 20:47 Peripheral/Venous Blood Culture - Preliminary NO GROWTH AFTER 4 DAYS Asencio/IV: Voiding Method Toilet Active Medications - Current Medications Current Medications: Generic Name Dose Route Start Last Admin Trade Name Freq PRN Reason Stop Dose Admin Acetaminophen 650 mg 03/30/22 20:55 03/30/22 21:37 Acetaminophen 325 Mg Tab PO 650 mg Q4H PRN Administration Pain MILD(1-3)/Fever >100.5/GARCIA Albuterol 2.5 mg 03/30/22 20:55 Albuterol 2.5 Mg/3 Ml Nebu IH Q4HRT PRN Shortness Of Breath Allopurinol 300 mg 03/31/22 10:00 04/03/22 09:08 Allopurinol 300 Mg Tab PO 300 mg QDAY ANGELA Administration Amlodipine Besylate 10 mg 03/31/22 10:00 04/03/22 09:08 Amlodipine 10 Mg Tab PO 10 mg DAILY ANGELA Administration Aspirin 325 mg 04/01/22 10:00 04/03/22 09:08 Aspirin Ec 325 Mg Tab PO 325 mg QDAY ANGELA Administration Atorvastatin Calcium 40 mg 04/01/22 22:00 04/03/22 21:37 Atorvastatin 40 Mg Tab PO 40 mg QHS ANGELA Administration Dextrose 50 ml 03/30/22 20:58 Dextrose 50% In Water (25gm) 50 Ml Syringe IV Q30MIN PRN Hypoglycemia Protocol Hydromorphone HCl 0.5 mg 03/30/22 20:55 Hydromorphone 0.5 Mg/0.5 Ml Inj IV Q23H PRN Pain , Severe (7-10) Sodium Chloride 1,000 mls @ 75 mls/hr 03/30/22 21:00 04/03/22 11:33 Nacl 0.9% 1000 Ml IV 75 mls/hr DIRECT ANGELA Administration Insulin Human Lispro 0 unit 04/03/22 22:00 04/03/22 22:00 Insulin Lispro 100 Unit/Ml SUB-Q Not Given ACHS ANGELA Protocol Lisinopril 20 mg 03/31/22 10:00 04/03/22 09:08 Lisinopril 20 Mg Tab PO 20 mg QDAY ANGELA Administration Ondansetron HCl 4 mg 03/30/22 20:55 03/30/22 21:35 Ondansetron 4 Mg/2 Ml Inj IV 4 mg Q8H PRN Administration Nausea And Vomiting Oxycodone/Acetaminophen 1 tab 03/30/22 20:55 Oxycodone /Acetaminophen 5-325mg Tab PO Q16H PRN Pain, Moderate (4-6) Sodium Chloride 10 ml 03/30/22 22:00 04/03/22 21:37 Sodium Chloride 0.9% 10 Ml Flush Syringe IV 10 ml BID ANGELA Administration Sodium Chloride 10 ml 03/30/22 20:55 Sodium Chloride 0.9% 10 Ml Flush Syringe IV PRN PRN LINE FLUSH
[2022-04-04] MEDS: SODIUM CHLORIDE 0.9% 1000 ML 1,000 ML IV SCH ×2 (09:30→22:19)
[2022-04-04] MEDS: allopurinoL 300 MG TAB PO SCH (09:31)
[2022-04-04] MEDS: ASPIRIN EC 325 MG TAB PO SCH (09:31)
[2022-04-04] MEDS: LISINOPRIL 20 MG TAB PO SCH (09:32)
[2022-04-04] MEDS: amLODIPine 10 MG TAB PO SCH (09:32)
[2022-04-04] MEDS: INSULIN LISPRO 100 UNIT/ML SUB-Q SCH ×4 (09:33→22:19)
--- NOTE | 2022-04-04 11:47 | Consultation ---
History of Present Illness - Reason for Consult Consult date: 04/04/22 ICA stenosis - History of Present Illness 76 YO Female with CVA with RHP on Antiplatelet therapy, HTN, HLD, Gout, Vascular Dementia, Cerebral Atherosclerosis, DM presents ED for evaluation. Patient has diminished cognition and is unable to provide detailed history. Patient history provided by patient caregivers who are at bedside during exam and interview. As per caregiver the patient was found to have increased weakness and confusion today. Caregivers reported that they suspected the patient may have had another stroke. Patient transported to [facility] via private vehicle for the care and evaluation of the aforementioned symptoms. The patient was seen and evaluated in the emergency department. All lab and imaging studies reviewed. Patient found to have urinary tract infection complicated by systemic inflammatory response syndrome, metabolic encephalopathy, as well as volume depletion. Patient initiated on CVA protocol without evidence of new CVA. Teleneurology consulted. No reports of fever, chills, chest pain, palpitation, productive cough, skin rash, recent contact, known exposure to COVID-19. No prior admission for review. All medication listed at time of admission as reconciled. Advanced care planning conducted in ED. Patient has diminished cognition but has a positive gag reflex and is able to protect her airway without difficulty at the time my evaluation. Vascular consulted for left ICA stenosis. Patient has barely 50% left ICA stenosis. Left thalamic stroke noted. Patient is alert and oriented x3 and denies any sensory defect and has full 5 out of 5 motor function. She has a right lateral gaze which, the son stated, is due to an ophthalmologic issue and is being addressed as an outpatient. She knows her age, name, and where she is. Past History Past Medical History: diabetes, hypertension, hyperlipidemia, stroke Past Surgical History: hysterectomy Social history: . denies: smoking, alcohol abuse, prescription drug abuse Family history: diabetes, hypertension Medications and Allergies Allergies Allergy/AdvReac Type Severity Reaction Status Date / Time No Known Allergies Allergy Verified 05/11/15 10:51 Home Medications Medication Instructions Recorded Confirmed Last Taken Type Aspirin [Aspirin BABY CHEW TAB] 81 mg DAILY 11/29/20 04/03/22 03/29/22 History Metformin HCl [metFORMIN ER 500 mg PO BID 11/29/20 04/03/22 03/29/22 History Osmotic] lisinopriL [Zestril TAB] 20 mg PO QDAY 11/29/20 04/03/22 03/29/22 History ALBUTEROL NEB's [Proventil 0.083% 2.5 mg IH Q3HRT PRN nebu 12/02/20 04/03/22 03/29/22 Rx NEBS] Amlodipine Besylate [Norvasc] 10 mg PO DAILY #30 tab 12/02/20 04/03/22 03/29/22 Rx AtorvaSTATin 10 mg PO QHS #30 tab 12/02/20 04/03/22 03/29/22 Rx allopurinoL [Zyloprim] 300 mg PO QDAY #30 tab 12/02/20 04/03/22 03/29/22 Rx Active Meds: Active Medications Acetaminophen (Acetaminophen 325 Mg Tab) 650 mg PO Q4H PRN PRN Reason: Pain MILD(1-3)/Fever >100.5/GARCIA Last Admin: 03/30/22 21:37 Dose: 650 mg Albuterol (Albuterol 2.5 Mg/3 Ml Nebu) 2.5 mg IH Q4HRT PRN PRN Reason: Shortness Of Breath Allopurinol (Allopurinol 300 Mg Tab) 300 mg PO QDAY [facility] Last Admin: 04/04/22 09:31 Dose: 300 mg Amlodipine Besylate (Amlodipine 10 Mg Tab) 10 mg PO DAILY [facility] Last Admin: 04/04/22 09:32 Dose: 10 mg Aspirin (Aspirin Ec 325 Mg Tab) 325 mg PO QDAY [facility] Last Admin: 04/04/22 09:31 Dose: 325 mg Atorvastatin Calcium (Atorvastatin 40 Mg Tab) 40 mg PO QHS [facility] Last Admin: 04/03/22 21:37 Dose: 40 mg Dextrose (Dextrose 50% In Water (25gm) 50 Ml Syringe) 50 ml IV Q30MIN PRN; Pr otocol PRN Reason: Hypoglycemia Enoxaparin Sodium (Enoxaparin 40 Mg/0.4 Ml Inj) 40 mg SUB-Q QDAY@2200 [facility]; Protocol Hydromorphone HCl (Hydromorphone 0.5 Mg/0.5 Ml Inj) 0.5 mg IV Q23H PRN PRN Reason: Pain , Severe (7-10) Sodium Chloride (Nacl 0.9% 1000 Ml) 1,000 mls @ 75 mls/hr IV DIRECT [facility] Last Admin: 04/04/22 09:30 Dose: 75 mls/hr Insulin Human Lispro (Insulin Lispro 100 Unit/Ml) 0 unit SUB-Q ACHS ANGELA; Protocol Last Admin: 04/04/22 09:33 Dose: 2 unit Lisinopril (Lisinopril 20 Mg Tab) 20 mg PO QDAY [facility] Last Admin: 04/04/22 09:32 Dose: 20 mg Ondansetron HCl (Ondansetron 4 Mg/2 Ml Inj) 4 mg IV Q8H PRN PRN Reason: Nausea And Vomiting Last Admin: 03/30/22 21:35 Dose: 4 mg Oxycodone/Acetaminophen (Oxycodone /Acetaminophen 5-325mg Tab) 1 tab PO Q16H PRN PRN Reason: Pain, Moderate (4-6) Sodium Chloride (Sodium Chloride 0.9% 10 Ml Flush Syringe) 10 ml IV BID [facility] Last Admin: 04/04/22 09:34 Dose: 10 ml Sodium Chloride (Sodium Chloride 0.9% 10 Ml Flush Syringe) 10 ml IV PRN PRN PRN Reason: LINE FLUSH Exam - Constitutional Vitals: Temp Pulse Resp BP Pulse Ox 98.2 F 80 20 149/71 95 04/04/22 05:15 04/04/22 05:15 04/04/22 05:15 04/04/22 05:15 04/04/22 05:15 Results - Labs CBC & Chem 7: 03/31/22 05:23 03/31/22 05:23 Labs: Abnormal lab results 04/03/22 04/03/22 04/04/22 Range/Units 17:37 21:59 05:45 POC Glucose 180 H 147 H 166 H (70-105) mg/dL Assessment and Plan 77-year-old female with multiple medical issues who is admitted for left thalamic stroke. Found to have left ICA 50% stenosis. Thalamic strokes are typically microvascular due to small vessel disease. There is no large vessel stroke distribution noted. No thrombotic component of left ICA stenosis noted on CT scan. Recommend increasing antiplatelet therapy (previously aspirin, recommend consideration for transition to Plavix), recommend continuing high-dose statin therapy. Patient will follow up in 4 to 6 weeks as outpatient with repeat ultrasound to continue following this area. If the area worsens, may consider endarterectomy. Will obtain a carotid ultrasound for baseline today. Discussed with patient and son.
--- NOTE | 2022-04-04 14:38 | Vascular Lab Report ---
DUPLEX DOPPLER ULTRASOUND CAROTID, BILATERAL INDICATION / CLINICAL INFORMATION: left ica stenosis. COMPARISON: CTA neck 04/01/2022. FINDINGS: RIGHT CAROTID: Mild atherosclerotic plaque. Mild intimal thickening. - PLAQUE ESTIMATE (%): < 50% - CCA velocity: 85 cm/sec. - ICA peak systolic velocity: 102 cm/sec. - ICA/CCA PSV Ratio: Less than 2. Right Vertebral Artery: Antegrade flow. LEFT CAROTID: Moderate atherosclerotic plaque and moderate intimal thickening. - PLAQUE ESTIMATE (%): >50% - CCA velocity: 96 cm/sec. - ICA peak systolic velocity: 129 cm/sec. - ICA/CCA PSV Ratio: Less than 2. Left Vertebral Artery: Antegrade flow. IMPRESSION: 1. Right Internal Carotid Artery: Less than 50% diameter stenosis. 2. Left Internal Carotid Artery: 50-69% diameter stenosis. Velocity criteria are extrapolated from diameter data as defined by the Society of Radiologists in Ul trasound Consensus Conference, Radiology 2003; 229;340-346. NO STENOSIS (NORMAL) - Plaque = none; ICA PSV < 125 cm/sec; ICA/CCA PSV Ratio < 2.0 <50% STENOSIS - Plaque < 50%; ICA PSV < 125 cm/sec; ICA/CCA PSV Ratio < 2.0 50-69% STENOSIS - Plaque > 50%; ICA PSV = 125-230 cm/sec; ICA/CCA PSV Ratio = 2.0-4.0 >70% BUT <100% STENOSIS - Plaque > 50%; ICA PSV > 230 cm/sec; ICA/CCA PSV Ratio > 4.0 NEAR OCCLUSION - Plaque = visible lumen; ICA PSV = high/low/none; ICA/CCA PSV Ratio = variable TOTAL OCCLUSION - Plaque = no lumen; ICA PSV = none; ICA/CCA PSV Ratio = N/A Scribed by: Halle Milton RDMS, RVT, JOCELYNEKS Scribed: 04/04/2022 1:24 PM I have reviewed the images, agree with this report, and edited this report as needed. Chest from Signer Name: Singh Dey MD Signed: 04/04/2022 2:33 PM Workstation Name: [id number]
[2022-04-04] MEDS ORDERED: ENOXAPARIN 40 MG/0.4 ML INJ SUB-Q SCH (22:00)
[2022-04-05] MEDS: INSULIN LISPRO 100 UNIT/ML SUB-Q SCH ×3 (07:52→17:20)
[2022-04-05] MEDS: allopurinoL 300 MG TAB PO SCH (09:15)
[2022-04-05] MEDS: amLODIPine 10 MG TAB PO SCH (09:15)
[2022-04-05] MEDS: LISINOPRIL 20 MG TAB PO SCH (09:16)
[2022-04-05] MEDS ORDERED: CLOPIDOGREL 75 MG TAB PO SCH (10:00)
--- NOTE | 2022-04-05 10:01 | Discharge Summary ---
Providers - Providers Date of Admission: 03/30/22 20:55 Date of discharge: 04/05/22 Attending physician: CARLY DE LEÓN 03/31/22 11:00 Physical Therapy Evaluation and Treat [CONS] Routine Comment: Reason For Exam: CVA 04/01/22 09:34 Consult to Physician [CONS] Routine Comment: Consulting Provider: CR POWELL Physician Instructions: Reason For Exam: CVA 04/03/22 12:21 Consult to Physician [CONS] Routine Comment: Consulting Provider: EKNN DELGADO Physician Instructions: Reason For Exam: CVA, ICA stenosis Primary care physician: MARTHA RINALDI Hospitalization Condition: Stable Hospital course: 76 YO Female with CVA with RHP on Antiplatelet therapy, HTN, HLD, Gout, Vascular Dementia, Cerebral Atherosclerosis, DM presents ED for evaluation of diminished cognition and was unable to provide detailed history. Patient's history provided by patient caregivers who are at bedside during exam and interview. As per caregiver the patient was found to have increased weakness and confusion today. Caregivers reported that they suspected the patient may have had another stroke. Patient transported to [facility] via private vehicle for the care and evaluation of the aforementioned symptoms. The patient was seen and evaluated in the emergency department. The patient was admitted with diagnosis below: Acute left thalamic CVA. Continue aspirin and statin, physical therapy occupational therapy rehabilitation Neurology following, home with home health upon discharge SIRS. Patient meets criteria given the tachycardia, leukocytosis and altered mentation. No signs of infection Diabetes mellitus type 2 Hypertension. Metabolic encephalopathy Vascular dementia Cerebral atherosclerosis Left internal carotid artery stenosis ; In the setting of left thalamic stroke Vascular/IR evaluated the patient Recommend aggressive management with antiplatelet therapy and high-dose statin therapy and follow-up carotid Doppler after 4 to 6 weeks, follow-up with vascular. 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 On CTA head Outpatient neurosurgery follow-up for further evaluation and management upon discharge CTA head; circulation directed superiorly near the origin of the left callosal marginal artery measuring 2 to 3 mm sagittally compatible with small aneurysm no further clear CT evidence of intracranial aneurysm neurology recommend outpatient neurosurgical evaluation upon discharge Discharge planning; PT recommend home health PT and rolling walker, saturating well on room air Possible discharge home tomorrow if stable Brief history and daily Hospital course; 03/31/2022. Urinalysis does not reveal any signs of infection. We will follow- up blood cultures for further evaluation. Continue empiric antibiotics for now. We will proceed with further follow-up and rule out CVA. Check MRI of brain. Patient appears to be back to her baseline mental status. ? TIA. 04/01/2022. MRI reveals acute anterior left thalamic CVA measuring 1.4 cm. We will initiate aspirin and Lipitor for secondary prevention. Await echocardiogram results to rule out thromboembolic source. Neurology has been consulted. Await physical therapy evaluation. Patient's BG has been stable not requiring home Lantus insulin. We will continue sliding scale regular insulin and monitor closely 04/02/2022. Neurology evaluated the patient and recommends CTA of the head and neck. Await PT evaluation for disposition. Continue aspirin and Lipitor. 04/03/2022. CT of the head and neck reveals extensive irregularity involving intracranial vessels most consistent with diffuse atherosclerotic disease. Findings also include calcification involving intracranial ICAs with moderate to marked segmental stenosis greatest on the right. There is occlusion of the P2 segment of the right GASOLINE DRAGLINE OPERATOR with old right GASOLINE DRAGLINE OPERATOR infarct and encephalomalacia involving occipital lobe. Patient also has atherosclerotic calcification involving proximal left ICA with 50% stenosis. Mild plaque involving right carotid bifurcation with significant stenosis. Neurology recommends neurosurgery consultation. We will also consult vascular for further evaluation. Continue aspirin and Lipitor. Physical therapy recommends home health PT and rolling walker 04/04/2022; possible discharge tomorrow with home health PT and rolling walker Disposition: 06 HOME HEALTH CARE SERVICE Final Discharge Diagnosis (Prints w/discharge instructions): Acute left thalamic CVA with right-sided weakness. SIRS. Type 2 diabetes mellitus. Hypertension. Metabolic encephalopathy. Vascular dementia. Cerebral atherosclerosis. Left internal carotid artery stenosis. Incidental finding of intracerebral small. Aneurysm Time spent for discharge: 40 minutes Core Measure Documentation - Palliative Care Palliative Care/ Comfort Measures: Not Applicable - Core Measures Any of the following diagnoses?: stroke - Stroke Discharge Requirements Statin for LDL = or >70 mg/dl on DC: Yes Anticoag for atrial fib/atrial flutter: Not Applicable (No evidence of A. fib or a flutter) Antithrombotic for ischemic stroke: Yes Exam - Constitutional Vitals: Temp Pulse Resp BP Pulse Ox 98.2 F 78 22 168/73 98 04/05/22 06:35 04/05/22 06:35 04/05/22 06:35 04/05/22 06:35 04/05/22 08:35 General appearance: Present: no acute distress, well-nourished - EENT Eyes: Present: PERRL, EOM intact - Neck Neck: Present: supple, normal ROM - Respiratory Respiratory effort: normal Respiratory: bilateral: diminished, negative: rales, rhonchi, wheezing - Cardiovascular Rhythm: regular Heart Sounds: Present: S1 & S2 - Extremities Extremities: no ischemia, No edema - Abdominal General gastrointestinal: Present: soft, non-tender, non-distended, normal bowel sounds - Integumentary Integumentary: Present: clear, warm - Musculoskeletal Musculoskeletal: generalized weakness - Psychiatric Psychiatric: appropriate mood/affect, cooperative - Neurologic Neurologic: CNII-XII intact, moves all extremities Plan Activity: advance as tolerated, no driving until cleared by PCP, fall pr ecautions Diet: other (Cardiac diet) Additional Instructions: If you have worsening symptoms contact MD or go to the nearest emergency room as needed. Fall precautions. Advised to follow with primary care physician, vascular physician, private neurologist and private neurosurgeon per schedule. Patient advised to get carotid Doppler in 6 weeks pr ior to seeing vascular surgeon. Follow up with: MARTHA RINALDI MD [Primary Care Provider] - 7 Days UNIQUE DASH MD [Staff Physician] - 6 Weeks MALENA BARRETO II, MD [Staff Physician] - 14 Days STEPHANIE HAYNES MD [Staff Physician] - 7 Days Prescriptions: AtorvaSTATin [Lipitor] 40 mg PO QHS #30 tablet Amlodipine Besylate [Norvasc] 10 mg PO DAILY #30 tab Clopidogrel [Plavix] 75 mg PO QDAY #30 tablet lisinopriL [Zestril TAB] 20 mg PO QDAY #30 tablet
[2022-04-05 12:38] VITALS: BP 145/68
== END 2022-04-05 18:59 | disposition home health service (06) | DRG 64 ==
LOC: ED 19:01 → 3A 20:55
PROVIDERS: ADMIT Internal Medicine; ATTEND Internal Medicine
DX: I63.89 Other cerebral infarction (principal); G92.8 Other toxic encephalopathy; R65.10 Systemic inflammatory response syndrome (SIRS) of non-infectious origin without acute organ dysfunction; N39.0 Urinary tract infection, site not specified; G81.91 Hemiplegia, unspecified affecting right dominant side; F01.50 Vascular dementia, unspecified severity, without behavioral disturbance, psychotic disturbance, mood disturbance, and anxiety; I10 Essential (primary) hypertension; E11.9 Type 2 diabetes mellitus without complications; E78.5 Hyperlipidemia, unspecified; R29.704 NIHSS score 4; I72.8 Aneurysm of other specified arteries; E86.9 Volume depletion, unspecified; M10.9 Gout, unspecified; E78.00 Pure hypercholesterolemia, unspecified; Z90.710 Acquired absence of both cervix and uterus; Z83.3 Family history of diabetes mellitus; Z82.49 Family history of ischemic heart disease and other diseases of the circulatory system; Z79.899 Other long term (current) drug therapy
CPT/HCPCS: 36415; 70450; 70496; 70498; 70551; 71045; 80048; 80053; 80061; 81001; 82607; 82962; 83036; 84443; 84484; 85025; 85610; 85670; 85730; 87040; 93306; 93880; G0378; J3490; Q9967; C8929; J0696; J1650; J1815; J1956; J2405; J7030